=== PATIENT | male | born 1980 | race Caucasian/White ===

== ENCOUNTER 2021-09-28 10:39 | Emergency (ER) | payer BC, OTHER, SELFPAY ==
[2021-09-28 10:51] VITALS: BP 132/92; PULSE 94; RESP 16; TEMP 36.8; O2SAT 99
--- NOTE | 2021-09-28 11:35 | ED.SKABFB ---
HPI - Skin/Abscess/Foreign Bdy General Chief complaint: Skin/Abscess/Foreign Body Stated complaint: lft side of facial swelling Source: patient and RN notes reviewed Mode of arrival: ambulatory History of Present Illness HPI narrative: This is a 40-year-old male who presented to urgent care with complaints of left near edema with tenderness. Patient notes that the swelling was so bad that it was under his left yesterday. He did attempt to use the net body but was unable to get flow due to the swelling in his left nare. The patient denies SOB, CP, palpitation, extremity numbness, lightheadedness, dizziness, constipation, diarrhea, chills, or fever. Related Data Home Medications Medication Instructions Recorded Confirmed empagliflozin [Jardiance] mg 09/28/21 febuxostat mg 09/28/21 metformin mg PO 09/28/21 omeprazole 09/28/21 rosuvastatin mg 09/28/21 trazodone 09/28/21 Allergies Allergy/AdvReac Type Severity Reaction Status Date / Time No Known Allergies Allergy Unverified 07/30/17 19:20 Review of Systems Review of Systems: A 14 organ system Review of Systems was performed and pertinent positives included in the HPI, otherwise remaining ROS is negative. FORMERLY [facility], [facility] Family History Family History Other Family history non-contributory Exam Narrative: GENERAL: This is a well-nourished, well-developed patient, in no apparent distress. HEAD: normocephalic, atraumatic. EYES: PERRL. Sclera clear/white. Vision is grossly intact. EARS: External ears normal, auditory canals clear and without drainage, TMs normal without perforation. Hearing grossly intact. NOSE: Slight edema to the left external nare with erythema and edema to the inner nare THROAT: Mucous membranes moist, posterior pharynx clear. NECK: Neck supple, non-tender without lymphadenopathy, masses or thyromegaly. CARDIOVASCULAR: Regular rate and rhythm without murmurs, gallops, or rubs. RESPIRATORY: Clear to auscultation. Breath sounds equal bilaterally. No wheezes, rales, or rhonchi. GASTROINTESTINAL: Abdomen soft, non-tender, nondistended. Bowel sounds are active. No hepato-splenomegaly, or palpable masses. No guarding. SKIN: warm, intact with no suspicious lesions or rash, good texture and turgor. NEURO: awake, alert, and oriented to person, place and time. There were no obvious focal neurologic abnormalities. Steady gait EXTREMITIES: Normal range of motion. No edema. No calf tenderness. Negative Homans sign bilaterally. BACK: Nontender without deformity or crepitance. No flank tenderness. Course Course Emergency Course: Patient treated for sinusitis will get Augmentin with Flonase and prednisone 21 pills Vital Signs Vital signs: Vital Signs Temperature 98.2 F 09/28/21 10:51 Pulse Rate 94 09/28/21 10:51 Respiratory Rate 16 09/28/21 10:51 Blood Pressure 132/92 H 09/28/21 10:51 Pulse Oximetry 99 09/28/21 10:51 Temperature 98.2 F 09/28/21 10:51 Pulse Rate 94 09/28/21 10:51 Respiratory Rate 16 09/28/21 10:51 Blood Pressure 132/92 H 09/28/21 10:51 Pulse Oximetry 99 09/28/21 10:51 MDM - Skin/Abscess/Foreign Bdy Differential Diagnosis Differential diagnosis: Likely abscess of skin or subcutaneous tissue, cellulitis and other (sinusitis) Discharge Plan Discharge Clinical Impression: Sinusitis Patient Disposition: Home, Self-Care Condition: Stable Instructions: Antibiotic Form, Sinusitis (ED) Prescriptions: New amoxicillin-pot clavulanate [Augmentin] 875-125 mg tablet 1 tablet PO Q12H 7 Days Qty: 14 RF: 0 methylprednisolone [Methylpred DP] 4 mg tablets,dose pack 4 mg PO DAILY Qty: 21 RF: 0 fluticasone propionate [Flonase Allergy Relief] 50 mcg/actuation spray,suspension 1 spray intranasal BID 7 Days Qty: 16 RF: 0 No Action trazodone 50 mg tablet RF: 0 omeprazole 40 mg capsule,delayed release(DR/EC) RF:
== END 2021-09-28 11:50 | disposition home or self-care (01) ==
PROVIDERS: Emergency Provider Nurse Practitioner; PCP Physician Assistant
DX: J32.9 Chronic sinusitis, unspecified (principal)
CPT/HCPCS: 99213; G0463

== ENCOUNTER 2022-07-25 19:38 | Emergency (ER) | payer BC, OTHER, SELFPAY ==
[2022-07-25 19:46] VITALS: BP 121/82; PULSE 88; RESP 18; TEMP 36.3; O2SAT 100
--- NOTE | 2022-07-25 20:00 | ED.URI ---
HPI - URI/Sore Throat General Chief Complaint: Upper Respiratory Infection Stated Complaint: uri Time Seen by Provider: 07/25/22 19:50 Source: patient Mode of arrival: ambulatory Limitations: no limitations History of Present Illness HPI Narrative: Patient presents today complaining of a 6-day history of productive cough, nasal congestion, rhinorrhea, headache, intermittent fevers. States 2 of his children were recently diagnosed with RSV. He has been taking Mucinex D, Advil D, Flonase, and Tylenol with intermittent relief. Denies shortness of breath, chest pain. Related Data Home Medications Medication Instructions Recorded Confirmed empagliflozin 10 mg tablet mg 09/28/21 (Jardiance) febuxostat 80 mg tablet mg 09/28/21 metformin 500 mg tablet,extended mg PO 09/28/21 release 24 hr omeprazole 40 mg capsule,delayed 09/28/21 release rosuvastatin 10 mg tablet mg 09/28/21 trazodone 50 mg tablet 09/28/21 Allergies Allergy/AdvReac Type Severity Reaction Status Date / Time No Known Allergies Allergy Unverified 07/30/17 19:20 Review of Systems Review of Systems: CONSTITUTIONAL: Denies body aches, chills, or sweats.+ Fever EYES: Denies visual changes, redness, or discharge. ENT: Denies sore throat, or otalgia.+ Congestion, rhinorrhea CARDIOVASCULAR: Denies chest pain, palpitations, or edema. RESPIRATORY: Denies dyspnea.+ Cough GASTROINTESTINAL: Denies abdominal pain, nausea, vomiting, or diarrhea. GENITOURINARY: Denies dysuria or hematuria. SKIN: Denies rash, itching, or wounds. MUSCULOSKELETAL: Denies back pain, joint pain, or myalgia. NEUROLOGIC: Denies numbness, tingling, or weakness.+ Headache PSYCH: Denies depression or anxiety. PENDING SALE TO [facility] Family History Family History Other Family history non-contributory Comments At time of signature, I have reviewed and agree with nursing past medical, surgical, social and family history unless otherwise noted. Please see nursing chart for further information. There is no relevant family history pertinent to the presenting complaint Exam Narrative: GENERAL: Mildly ill-appearing, well-nourished, and in no acute distress. HEAD: Normocephalic, atraumatic. EYES: EOMI. No redness or drainage. Conjunctivae normal. ENT: Mucous membranes pink and moist. Nares clear. No rhinorrhea. TMs normal bilaterally. Throat normal. Uvula midline. NECK: Normal AROM. Supple. No lymphadenopathy. CHEST: No respiratory distress. Clear to auscultation. Tight cough noted. Deep breath elicits coughing episodes. HEART: Regular rate and rhythm. No murmur appreciated. Normal peripheral pulses. EXTREMITIES: Normal range of motion. No edema. SKIN: Warm, dry, no rash. Capillary refill normal. Normal skin turgor. NEURO: No focal deficits. Alert and oriented x3. Gait steady. PSYCH: Normal affect. No signs of depression or anxiety. Course Course Level of Care: Express Care Visit Vital Signs Vital signs: Vital Signs Temperature 97.3 F L 07/25/22 19:46 Pulse Rate 88 07/25/22 19:46 Respiratory Rate 18 07/25/22 19:46 Blood Pressure 121/82 07/25/22 19:46 Pulse Oximetry 100 07/25/22 19:46 Oxygen Delivery Room Air 07/25/22 19:46 Temperature 97.3 F L 07/25/22 19:46 Pulse Rate 88 07/25/22 19:46 Respiratory Rate 18 07/25/22 19:46 Blood Pressure 121/82 07/25/22 19:46 Pulse Oximetry 100 07/25/22 19:46 Oxygen Delivery Room Air 07/25/22 19:46 Reviewed. Pt has been instructed to follow up with his PCP regarding his elevated blood pressure today. MDM - URI/Sore Throat Differential Diagnosis Differential diagnosis: Likely upper respiratory infection, viral infection and bronchitis Critical Care Time Critical Care Time Critical Care Time: No Discharge Plan Discharge Clinical Impression: Upper respiratory infection, Bronchitis Patient Disposition: Home, Self-Care Con
== END 2022-07-25 20:06 | disposition home or self-care (01) ==
PROVIDERS: Emergency Provider Nurse Practitioner; PCP Physician Assistant
DX: J06.9 Acute upper respiratory infection, unspecified (principal); J40 Bronchitis, not specified as acute or chronic
CPT/HCPCS: 99213; G0463

== ENCOUNTER → 2024-02-11 15:57 | Outpatient (CLI) | payer BC, SELFPAY ==
--- NOTE | ~2024-02-11 | XR_ITS ---
EXAM: XR clavicle LT DATE: 02/11/2024 16:17 HISTORY: PAIN AT STERNOCLAVICAL JOINT X 2 WEEKS NO KNOWN INJURY . COMPARISON: None available. FINDINGS: Normal mineralization. No fracture or dislocation. No lytic or blastic lesion. Old healed distal left clavicular shaft fracture. Moderate AC joint and mild glenohumeral joint degenerative addi nge. No erosion or periosteal change. Soft tissues within normal limits. IMPRESSION: No acute osseous finding the left clavicle. Reviewed, dictated and finalized at location K.
== END ==
LOC: EXPCRAD 16:02
PROVIDERS: PCP Physician Assistant; Visit Provider Physician Assistant
DX: M25.512 Pain in left shoulder (principal)
CPT/HCPCS: 73000

== ENCOUNTER 2025-02-10 09:34 | Emergency (ER) | payer BC, SELFPAY ==
--- NOTE | ~2025-02-10 | CT_ITS ---
Non-contrast CT scan of the Abdomen and Pelvis Clinical indication: Left flank pain Technique: 2.5 mm axial scans were obtained through the abdomen and pelvis without intravenous or or al contrast. Dose reduction technique was used on this scan by utilizing automated exposure control a nd iterative reconstruction technique. The dose-length product (DLP) was 687.02 mGy-cm. Findings: Images through the lung bases reveal no abnormalities. There is a 2 mm stone either at the left UVJ or just within the urinary bladder, with minimal left hy droureteronephrosis. Multiple additional bilateral nonobstructing renal stones are present, measuring up to 4 mm in diameter. No right ureteral stone or right hydronephrosis. The liver, spleen, pancreas, gallbladder, and adrenals appear normal. There is no aortic aneurysm. There is no evidence of bowel obstruction. Images through the pelvis were performed. There is no evidence of ascites or lymphadenopathy. Urinary bladder otherwise unremarkable. No pelvic mass seen. Impression: 2 mm stone at the left UVJ versus just within the urinary bladder. Associated mild left hydroureteron ephrosis. Multiple additional bilateral nonobstructing renal stones, as detailed above. Reviewed, dictated and finalized at location M. Impression: 2 mm stone at the left UVJ versus just within the urinary bladder. Associated m ild left hydroureteronephrosis. Multiple additional bilateral nonobstructing renal stones, as detailed above.
[2025-02-10 09:40] VITALS: BP 127/96; PULSE 81; RESP 15; TEMP 36.5; O2SAT 100
--- OUTSIDE RECORDS SUMMARY | 2025-02-10 10:01 | XMS_ITS | Referral Summary ---
Author Organization [facility] [place] [address] [facility] Address [address] [place] [id number] Care Team Providers Care Air Analyst Name Role Phone Janine Cardoza Primary Care Provider [phone] Encounters Date Type Department Care Team Description 11/19/2024 Orders Only [facility] Medical [facility] Family Medicine [address] [place] [address] [place] [phone] Provider, MD Kayla 11/18/2024 3:30 PM [employer] Office Visit [address] [place] [phone] Janine Cardoza PA Annual physical exam (Primary Dx); Need for influenza vaccination; Controlled type 2 diabetes mellitus without complication, without long-term current use of insulin (HCC); Type 2 diabetes mellitus with hyperlipidemia (HCC); Exposure to herpes simplex virus (HSV); Moderate episode of recurrent major depressive disorder (HCC); BMI 27.0-27.9,adult from Last 3 Months Allergies No known active allergies Medications blood-glucose meter kitIndications:Co ntrolled type 2 diabetes mellitus without complication, without long-term current use of insulin (HCC) Test daily 1 each Active Micro Thin Lancets 33 gauge misc USE TO TEST BLOOD SUGAR ONCE DAILY 100 each 2 020 Active omega-3 fatty acids-fish oil 300-1,000 mg capsule Take by mouth Active multivitamin-calc ium carb tablet,chewable Take by mouth Active multivit-min/iron /folic acid/K (ADULTS MULTIVITAMIN ORAL) Take by mouth Active albuterol HFA (PROVENTIL HFA,VENTOLIN HFA,PROAIR HFA) 90 mcg/actuation inhaler Inhale 2 puffs every 4 (four) hours as needed for wheezing 8.5 g 1 Active colchicine (COLCRYS) 0.6 mg capsule Take TWO tabs po at onset of sxs. Take one pill 6 hours later. 3 capsule 1 022 Active Additional Information Patient not taking.Reported on 11/18/2024 ketoconazole (NIZORAL) 2 % shampoo Apply topically 2 (two) times a week Apply to damp skin, lather, leave on 5 minutes, and rinse 120 mL 2 022 Active sildenafiL (VIAGRA) 100 mg tablet Take 1 tablet (100 mg total) by mouth as needed for erectile dysfunction 10 tablet 3 024 Active traZODone (DESYREL) 150 mg tablet TAKE 1 TABLET(150 MG) BY MOUTH EVERY NIGHT NEEDED FOR SLEEP 90 tablet 2 024 Active buPROPion XL (WELLBUTRIN XL) 150 mg 24 hr tablet Take 1 tablet (150 mg total) by mouth every morning 90 tablet 1 024 Active benzonatate (TESSALON) 100 mg capsuleIndication s:Cough Take 1 capsule (100 mg total) by mouth 3 (three) times a day as needed for cough 30 capsule 024 Active valACYclovir (VALTREX) 1 gram tablet Take 1 tablet (1,000 mg total) by mouth daily 90 tablet 1 024 Active omeprazole (PriLOSEC) 40 mg capsule TAKE 1 CAPSULE(40 MG) BY MOUTH DAILY 90 capsule 2 025 Active Additional Information Patient taking differently:40 mg oralDaily PRN, Reported on 11/18/2024 Maryan 15 mg/0.5 mL pen injector injection ADMINISTER 15 MG UNDER THE SKIN EVERY 7 DAYS 6 mL 1 025 Active escitalopram (LEXAPRO) 20 mg tablet TAKE 1 TABLET(20 MG) BY MOUTH DAILY 100 tablet 1 025 Active febuxostat (ULORIC) 80 mg tablet TAKE 1 TABLET(80 MG) BY MOUTH DAILY 90 tablet 2 025 Active rosuvastatin (CRESTOR) 10 mg tabletIndications :Type 2 diabetes mellitus with hyperlipidemia (HCC) TAKE 1 TABLET(10 MG) BY MOUTH DAILY 90 tablet 2 025 Active rosuvastatin (CRESTOR) 10 mg tabletIndications :Type 2 diabetes mellitus with hyperlipidemia (HCC) TAKE 1 TABLET(10 MG) BY MOUTH DAILY 90 tablet 2 024 2024 Discontinued febuxostat (ULORIC) 80 mg tablet TAKE 1 TABLET(80 MG) BY MOUTH DAILY 90 tablet 2 024 2024 Discontinued Active Problems Problem Noted Date Diagnosed Date Need for influenza vaccination 11/29/2024 Assessment & Plan (11/29/2024 5:22 PM [employer]): Flu vaccine updated in the office today Annual physical exam 11/29/2024 Assessment & Plan (11/29/2024 5:22 PM [employer]ISON): Encouraged healthy lifestyle, good nutrition and exercise. Encouraged Calcium and Vitamin D and weight bearing exercise for bone health. Reviewed immunizations Reviewed age appropirate screenings. BMI 27.0-27.9,adult 08/11/2024 Assessment & Plan (11/29/2024 5:21 PM [employer]ISON): Weight/BMI is in healthy range. Continue healthy lifestyle to maintain. Assessment & Plan (09/14/2024 3:44 PM [employer]ITY [employer]ISON): Discussed the patient's BMI. The BMI is above average. BMI management plan is completed. BMI Follow-up includes: nutrition counseling, exercise counseling and education provided. Assessment & Plan (08/11/2024 1:41 PM [employer]ISON): Weight/BMI is in healthy range. Continue healthy lifestyle to maintain. Moderate episode of recurrent major depressive d isorder 08/11/2024 Assessment & Plan (11/29/2024 5:22 PM [employer]ISON): Continue Wellbutrin XL 150, trazodone 150 for sleep and Lexapro 20 Assessment & Plan (09/26/2024 1:34 PM [employer]ISON): Depression symptoms are still present. He is under a lot of stress as he is currently going through a divorce and juggling children as well as work. Continue Wellbutrin XL 150. Increase the Lexapro to 20 mg. Follow-up 6-8 weeks to reassess or sooner for any other problems or concerns. Strongly encouraged continued counseling Assessment & Plan (09/13/2024 12:45 AM [employer]ITY [employer]IAISON): Patient is under lot of stress, depression. Is going through divorce. Juggling caring for his children and just a lot of changes. He is in counseling. Started Wellbutrin XL 150. Still feels like it is not doing enough. Will add the Lexapro 10 mg. Using trazodone 150 for sleep. Follow up in 4 weeks to reassess or sooner for any other problems or concerns Assessment & Plan (08/12/2024 12:17 AM [employer]IAISON): Discussed depression at length. Currently no suicidal homicidal thoughts. He may call at any time if he needs assistance. Encouraged continuing with his counselor. Discussed medication options. His counselor has encouraged bupropion and so he is very interested in this product no history of seizures. Will go with Wellbutrin XL 150. Reviewed risks benefits alternatives side effects and proper use. Take in the a.m.. Follow up in 3 weeks to reassess and if still not seen enough improvement will add Lexapro. 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 Assessment & Plan (09/13/2024 12:46 AM [employer] COMM[employer]ITY [employer]IAISON): Continue Valtrex for prevention Assessment & Plan (08/12/2024 12:16 AM [employer] COMM[employer]ITY [employer]IAISON): Exposure to HSV through his current partner. Discussed ability to diagnose this between culturing a active lesion versus IgG lab work. He is in favor doing lab work at this point. Advised if another lesion appears to come in so we can culture at that time. He is in agreement with the plan. Will start Valtrex 1 g t.i.d. x7 days. Will then transitioned to 1 g daily for suppression. Controlled type 2 diabetes kale austin without complication, without long-term current use of insulin 05/24/2022 Assessment & Plan (11/29/2024 5:22 PM [employer] COMM[employer]ITY [employer]IAISON): Stressed importance of continued A1c control to minimize the frame polisher effects of diabetes. Bring accuchecks to office when instructed to do so. Check A1c about every 3-6 months. Take medication as prescribed. Get annual eye exam. Encouraged LLOYD/Statin if able to tolerate. Encouraged weight control and encouraged diabetic diet and exercise. Assessment & Plan (09/26/2024 1:34 PM [employer]ITY [employer]IAISON): Stressed importance of continued A1c control to minimize the frame polisher effects of diabetes. Bring accuchecks to office when instructed to do so. Check A1c about every 3-6 months. Take medication as prescribed. Get annual eye exam. Encouraged LLOYD/Statin if able to tolerate. Encouraged weight control and encouraged diabetic diet and exercise. Encouraged patient to follow low fat/low chol diet like the Mediterranean diet. Increase good fats in the diet. Increase exercise. Monitor labs as needed. A1c is very tightly controlled with an A1c at 5.2. Weight has gone down nicely. He is on MOunjaro 15. At this point he wants to continue with the same dose. May consider titrating back down with the next visit. Assessment & Plan (09/13/2024 12:45 AM [employer]IAISON): Stressed importance of continued A1c control to minimize the jail effects of diabetes. Bring accuchecks to office when instructed to do so. Check A1c about every 3-6 months. Take medication as prescribed. Get annual eye exam. Encouraged LLOYD/Statin if able to tolerate. Encouraged weight control and encouraged diabetic diet and exercise. Continue Mounjaro 15. A1c is tightly controlled. Assessment & Plan (08/12/2024 12:15 AM [employer] COMM[employer]ITY [employer]IAISON): Stressed importance of continued A1c control to minimize the frame polisher effects of diabetes. Bring accuchecks to office when instructed to do so. Check A1c about every 3-6 months. Take medication as prescribed. Get annual eye exam. Encouraged LLOYD/Statin if able to tolerate. Encouraged weight control and encouraged diabetic diet and exercise. Patient is doing well with the mounjaro 12.5 He feels like he is snacking and emotionally eating but I suspect this is related to depression and stressors that are currently in his life. Will aggressively treat the depression and continue to monitor closely. Assessment & Plan (04/12/2024 6:59 PM CDT): Stressed importance of continued A1c control to minimize the frame polisher effects of diabetes. Bring accuchecks to office when instructed to do so. Check A1c about every 3-6 months. Take medication as prescribed. Get annual eye exam. Encouraged LLOYD/Statin if able to tolerate. Encouraged weight control and encouraged diabetic diet and exercise. Continue Ozempic 2 mg Assessment & Plan (12/15/2023 10:48 PM CDT): Stressed importance of continued A1c control to minimize the frame polisher effects of diabetes. Bring accuchecks to office when instructed to do so. Check A1c about every 3-6 months. Take medication as prescribed. Get annual eye exam. Encouraged LLOYD/Statin if able to tolerate. Encouraged weight control and encouraged diabetic diet and exercise. A1c has been nicely controlled . Continue Ozempic -- may change based on supply. Assessment & Plan (06/10/2023 1:26 AM CDT): Stressed importance of continued A1c control to minimize the frame polisher effects of diabetes. Bring accuchecks to office when instructed to do so. Check A1c about every 3-6 months. Take medication as prescribed. Get annual eye exam. Encouraged LLOYD/Statin if able to tolerate. Encouraged weight control and encouraged diabetic diet and exercise. Has done well Rybelsus but discussed more weight loss and possibly better control of lipids and other comorbidities with transitioned to much RO. Will stop the [id number] transitioned to majora 5 and continue to increase as tolerated. Assessment & Plan (12/16/2022 6:26 PM CDT): Stressed importance of continued A1c control to minimize the frame polisher effects of diabetes. Bring accuchecks to office when instructed to do so. Check A1c about every 3-6 months. Take medication as prescribed. Get annual eye exam. Encouraged LLOYD/Statin if able to tolerate. Encouraged weight control and encouraged diabetic diet and exercise. Well controlled with Rybelsus 14mg. Can stop Metformin. Assessment & Plan (05/26/2022 1:38 PM CDT): Stressed importance of continued A1c control to minimize the jail effects of diabetes. Bring accuchecks to office when instructed to do so. Check A1c about every 3-6 months. Take medication as prescribed. Get annual eye exam. Encouraged LLOYD/Statin if able to tolerate. Encouraged weight control and encouraged diabetic diet and exercise. Encouraged patient to follow low fat/low chol diet like the Mediterranean diet. Increase good fats in the diet. Increase exercise. Monitor labs as needed. Continue statin A1c is very tightly controlled with the addition of the Rybelsus 14 mg. May stop the metformin. Recheck labs in 4-6 months. History of 2019 novel coronavirus disease (COVID -19) 11/13/2020 Overview (11/13/2020): Positive 10/2020 Assessment & Plan (11/13/2020 6:16 PM [employer]ET[employer] COMM[employer]ITY [employer]IAISON): Continue to monitor. If sxs reoccur he is to call. His 10 days quarrantine has completed. Erectile dysfunction associa jamaal with type 2 diabetes mellitus 10/15/2019 Assessment & Plan (04/12/2024 6:59 PM CDT): Continue Viagra p.r.n. Assessment & Plan (06/29/2020 1:37 PM CDT): monitor Assessment & Plan (11/07/2019 11:02 AM [employer] COMM[employer]ITY [employer]IAISON): Stressed importance of continued A1c control to minimize the jail effects of diabetes. Bring accuchecks to office when instructed to do so. Check A1c about every 3-6 months. Take medication as prescribed. Get annual eye exam. Encouraged LLOYD/Statin if able to tolerate. Encouraged weight control and encouraged diabetic diet and exercise. Other secondary gout, multiple sites 10/15/2019 Assessment & Plan (04/12/2024 6:58 PM CDT): Encouraged to take Uloric daily as instructed to see if he can regain control of his gout Assessment & Plan (12/15/2023 10:49 PM CDT): Stable with Uloric Assessment & Plan (12/16/2022 6:25 PM CDT): Stable with Uloric. He is on a high dose but this is keeping his uric acid low. He has not really had any flares. Assessment & Plan (05/26/2022 1:37 PM CDT): Stable with the Uloric. Refills of pharmacy Assessment & Plan (08/25/2021 7:24 PM [employer]ITY [employer]IAISON): Uloric is tolerated well. His uric acid level is 2.7 so suspect that his right toe pain may not be gout related. Will check an x-ray. Assessment & Plan (11/13/2020 6:19 PM [employer]ETING COMM[employer]ITY LIAISON): Continue with uloric Assessment & Plan (06/29/2020 1:37 PM CDT): Uric acid level is tightly controlled with the Uloric. Continue to monitor diet Assessment & Plan (11/07/2019 11:02 AM [employer] COMM[employer]ITY LIAISON): Continue Uloric Monitor diet Primary insomnia 10/15/2019 Assessment & Plan (09/26/2024 1:32 PM [employer] COMM[employer]ITY [employer]IAISON): Patient continues to have difficulty sleeping. Probably secondary to depression and stress with an ongoing divorce. Continue trazodone 150. Using Benadryl p.r.n.. Continue to aggressively treat the depression anxiety with the Wellbutrin and Lexapro. Assessment & Plan (04/12/2024 6:58 PM CDT): Continue trazodone Assessment & Plan (05/26/2022 1:39 PM CDT): Continue with the trazodone Assessment & Plan (01/20/2022 10:52 PM CDT): Continue trazodone 150 mg. Will new tablet sent to pharmacy Assessment & Plan (08/25/2021 7:27 PM [employer]ITY [employer]IAISON): This is a significant, separately identifiable problem that was evaluated and managed on the same day as the wellness exam Patient is having difficulty falling asleep at night as he is working 2nd shift and trying to stay up to be with his family. He has not tolerated Ambien well in the past. Will try trazodone 50 mg take 1-2 tablets 1-2 hours prior to the onset of sleep. Reviewed risks benefits alternatives side effects and proper use. Will monitor and few months to see how he is doing see adjustments me made. If he has any problems before then he is to call the office for further assistance Assessment & Plan (11/07/2019 11:04 AM [employer]IAISON): Discussed treatment options. Encouraged good sleep hygeine -- will continue to monitor. Type 2 diabetes mellitus with hyperlipidemia 06/2020 Assessment & Plan (11/29/2024 5:21 PM [employer] COMM[employer]ITY LIAISON): Stressed importance of continued A1c control to minimize the jail effects of diabetes. Bring accuchecks to office when instructed to do so. Check A1c about every 3-6 months. Take medication as prescribed. Get annual eye exam. Encouraged LLOYD/Statin if able to tolerate. Encouraged weight control and encouraged diabetic diet and exercise. Encouraged patient to follow low fat/low chol diet like the Mediterranean diet. Increase good fats in the diet. Increase exercise. Monitor labs as needed. Continue Mounjaro as his A1c is very well controlled. Advised it so low that it may be time to start pulling back on the Mounjaro Still encouraged him to eat protein and calories as he has had significant weight loss. Assessment & Plan (09/26/2024 1:33 PM [employer]ING COMM[employer]ITY LIAISON): Stressed importance of continued A1c control to minimize the jail effects of diabetes. Bring accuchecks to office when instructed to do so. Check A1c about every 3-6 months. Take medication as prescribed. Get annual eye exam. Encouraged LLOYD/Statin if able to tolerate. Encouraged weight control and encouraged diabetic diet and exercise. Encouraged patient to follow low fat/low chol diet like the Mediterranean diet. Increase good fats in the diet. Increase exercise. Monitor labs as needed. A1c is very tightly controlled with an A1c at 5.2. Weight has gone down nicely. He is on MOunjaro 15. At this point he wants to continue with the same dose. May consider titrating back down with the next visit. Continue Crestor 10 Assessment & Plan (04/12/2024 6:59 PM CDT): Encouraged patient to follow low fat/low chol diet like the Mediterranean diet. Increase good fats in the diet. Increase exercise. Monitor labs as needed. Continue Crestor 10 Assessment & Plan (12/15/2023 10:50 PM CDT): Encouraged patient to follow low fat/low chol diet like the Mediterranean diet. Increase good fats in the diet. Increase exercise. Monitor labs as needed. Continue Crestor 10 Assessment & Plan (06/10/2023 1:25 AM CDT): Stressed importance of continued A1c control to minimize the jail effects of diabetes. Bring accuchecks to office when instructed to do so. Check A1c about every 3-6 months. Take medication as prescribed. Get annual eye exam. Encouraged LLOYD/Statin if able to tolerate. Encouraged weight control and encouraged diabetic diet and exercise. Encouraged patient to follow low fat/low chol diet like the Mediterranean diet. Increase good fats in the diet. Increase exercise. Monitor labs as needed. Continue Crestor 10. Has done well Rybelsus but discussed more weight loss and possibly better control of lipids and other comorbidities with transitioned to much RO. Will stop the [id number] transitioned to majora 5 and continue to increase as tolerated. Assessment & Plan (12/16/2022 6:25 PM CDT): Encouraged patient to follow low fat/low chol diet like the Mediterranean diet. Increase good fats in the diet. Increase exercise. Monitor labs as needed. Continue Crestor 10 Assessment & Plan (05/26/2022 1:38 PM CDT): Stressed importance of continued A1c control to minimize the frame polisher effects of diabetes. Bring accuchecks to office when instructed to do so. Check A1c about every 3-6 months. Take medication as prescribed. Get annual eye exam. Encouraged LLOYD/Statin if able to tolerate. Encouraged weight control and encouraged diabetic diet and exercise. Encouraged patient to follow low fat/low chol diet like the Mediterranean diet. Increase good fats in the diet. Increase exercise. Monitor labs as needed. Continue statin A1c is very tightly controlled with the addition of the Rybelsus 14 mg. May stop the metformin. Recheck labs in 4-6 months. Assessment & Plan (01/20/2022 10:52 PM CDT): Encouraged patient to follow low fat/low chol diet like the Mediterranean diet. Increase good fats in the diet. Increase exercise. Monitor labs as needed. Have held statin due to liver enzymes. Will continue to monitor Assessment & Plan (08/25/2021 7:24 PM [employer] COMM[employer]ITY [employer]IAISON): Encouraged patient to follow fat/low chol diet like the Mediterranean diet. Increase good fats in the diet. Increase exercise. Monitor labs as needed. Continue Crestor Assessment & Plan (11/13/2020 6:18 PM MARKETING COMMUNITY LIAISON): Encouraged patient to follow fat/low chol diet like the Mediterranean diet. Increase good fats in the diet. Increase exercise. Monitor labs as needed. Crestor daily Reviewed risks, benefit, alternatives, side effects and proper use. Monitor LFTs Assessment & Plan (06/29/2020 1:37 PM CDT): Encouraged patient to continue low fat/low chol diet. Continue exercise. Increase good fats in the diet. Monitor labs as needed. Discussed benefit of statin with DM but will still hold until after LFTs/liver workup is done. Assessment & Plan (11/07/2019 11:05 AM [employer] COMM[employer]ITY [employer]IAISON): This is a significant, separately identifiable problem that was evaluated and managed on the same day as the wellness exam Encouraged patient to continue low fat/low chol diet. Continue exercise. Increase good fats in the diet. Monitor labs as needed. Would benefit from statin but hesitant to start without addressing the LFTs. Will refer to GI and await recommendations. Gastroesophageal reflux disease without esophagi tis 10/15/2019 Assessment & Plan (04/12/2024 6:59 PM CDT): Continue PPI p.r.n. Assessment & Plan (12/16/2022 6:25 PM CDT): Continue PPI p.r.n. Assessment & Plan (08/25/2021 7:24 PM [employer]ITY [employer]IAISON): Continue omeprazole. Will change to 40 mg tablets 1 daily. Assessment & Plan (06/29/2020 1:34 PM CDT): Continue PPI Assessment & Plan (11/07/2019 11:01 AM [employer] COMM[employer]ITY [employer]IAISON): Currently stable without medication Elevated liver enzymes 10/15/2019 Assessment & Plan (12/15/2023 10:45 PM CDT): Continue to monitor. May consider liver ultrasound to rule out fatty liver. Assessment & Plan (06/29/2020 1:41 PM CDT): Continue per Dr. Fraga. Await workup completion to determine start of statin Assessment & Plan (11/07/2019 11:05 AM [employer] COMM[employer]ITY [employer]IAISON): This is a significant, separately identifiable problem that was evaluated and managed on the same day as the wellness exam Heptatitis screening was negative. Stop all alcohol and Tylenol and other liver process meds--- Refer to GI for further evaluation Lymphocytic thyroiditis 02/20/2014 Overview (01/11/2017): [facility]R LYMPHOCYT THYROIDIT Resolved Problems Problem Noted Date Diagnosed Date Resolved Date Subacute cough 08/12/2024 09/13/2024 Assessment & Plan (08/12/2024 12:19 AM [employer]IAISON): Patient has had a persistent cough for almost 10 days. He did a negative COVID at home. Is becoming productive with some discoloration. Will send out Augmentin 875 b.i.d. times 10 days. Will send Tessalon Perles for the cough. Continue with [id number] cough medicines as needed. If symptoms worsen or do not improve he is to follow up immediately. Screening examination for ST D (sexually transmitted disease) 08/11/2024 09/13/2024 Assessment & Plan (08/12/2024 12:17 AM MARKETING COMMUNITY LIAISON): Will check STD screening including HIV hepatitis syphilis gonorrhea chlamydia and trichomoniasis along with HSV. Acute pain of left shoulder 04/12/2024 09/26/2024 Assessment & Plan (04/12/2024 7:16 PM CDT): Persistent shoulder pain. X-ray did not show an acute fracture. Has tried physical therapy without improvement. Recommend referral to orthopedics for further evaluation. BMI 32.0-32.9,adult 12/15/2023 08/11/20 Assessment & Plan (04/12/2024 7:00 PM CDT): Discussed the patient's BMI. The BMI is above average. BMI management plan is completed. BMI Follow-up includes: nutrition counseling, exercise counseling and education provided. Assessment & Plan (12/15/2023 10:45 PM CDT): Discussed the patient's BMI. The BMI is above average. BMI management plan is completed. BMI Follow-up includes: nutrition counseling, exercise counseling and education provided. Obesity (BMI 30.0-34.9) 12/15/202303/08 Assessment & Plan (12/15/2023 10:45 PM CDT): Discussed the patient's BMI. The BMI is above average. BMI management plan is completed. BMI Follow-up includes: nutrition counseling, exercise counseling and education provided. Positive depression screening 12/02/2023 09/26/2024 Elevated LFTs 06/10/2023 12/15/2023 Assessment & Plan (06/10/2023 1:26 AM CDT): LFTs have been elevated but stable. Go ahead and check an ultrasound of the liver as well as continue with weight loss and diabetes control. BMI 35.0-35.9,adult 05/30/2023 12/15/19 Assessment & Plan (05/30/2023 2:13 PM CDT): Discussed the patient's BMI. The BMI is above average. BMI management plan is completed. BMI Follow-up includes: nutrition counseling, exercise counseling and education provided. BMI 35.0-35.9,adult 11/26/2022 05/30/20 Assessment & Plan (11/26/2022 4:10 PM [employer]IAISON): Discussed the patient's BMI. The BMI is above average. BMI management plan is completed. BMI Follow-up includes: nutrition counseling, exercise counseling and education provided. Body mass index 34.0-34.9, adult 05/26/2022 12/16/2022 Assessment & Plan (05/26/2022 1:38 PM CDT): Discussed the patient's BMI. The BMI is above average. BMI management plan is completed. BMI Follow-up includes: nutrition counseling, exercise counseling and education provided. BMI 34.0-34.9,adult 01/18/2022 05/26/20 Assessment & Plan (01/18/2022 3:45 PM CDT): Obesity is unchanged. Discussed the patient's BMI. The BMI is above average. BMI management plan is completed. BMI Follow-up includes: nutrition counseling, exercise counseling and education provided. BMI 36.0-36.9,adult 08/25/2021 01/19/20 Assessment & Plan (08/25/2021 10:00 AM [employer] COMM[employer]ITY [employer]IAISON): Obesity is unchanged. Discussed the patient's BMI. The BMI is above average. BMI management plan is completed. BMI Follow-up includes: nutrition counseling, exercise counseling and education provided. Morbid obesity 08/25/2021 12/15/2023 Assessment & Plan (06/10/2023 1:25 AM CDT): Discussed the patient's BMI. The BMI is above average. BMI management plan is completed. BMI Follow-up includes: nutrition counseling, exercise counseling and education provided. Patient has an obesity-related condition (not limited to: hypertension, obstructive sleep apnea, osteoarthritis, hyperlipidemia, diabetes, etc.). Therefore, morbid obesity may be documented for patients with a BMI between 35.00-39.99. Assessment & Plan (12/16/2022 6:25 PM CDT): Discussed the patient's BMI. The BMI is above average. BMI management plan is completed. BMI Follow-up includes: nutrition counseling, exercise counseling and education provided. Patient has an obesity-related condition (not limited to: hypertension, obstructive sleep apnea, osteoarthritis, hyperlipidemia, diabetes, etc.). Therefore, morbid obesity may be documented for patients with a BMI between 35.00-39.99. Assessment & Plan (05/26/2022 1:38 PM CDT): Discussed the patient's BMI. The BMI is above average. BMI management plan is completed. BMI Follow-up includes: nutrition counseling, exercise counseling and education provided. Assessment & Plan (01/18/2022 3:46 PM CDT): Obesity is unchanged. Discussed the patient's BMI. The BMI is above average. BMI management plan is completed. BMI Follow-up includes: nutrition counseling, exercise counseling and education provided. Assessment & Plan (08/25/2021 10:00 AM [employer]ITY [employer]IAISON): Obesity is unchanged. Discussed the patient's BMI. The BMI is above average. BMI management plan is completed. BMI Follow-up includes: nutrition counseling, exercise counseling and education provided. Chronic toe pain, right foot 08/25/2021 09/26/2024 Assessment & Plan (08/25/2021 7:26 PM [employer]ET[employer]ITY [employer]IAISON): This is a significant, separately identifiable problem that was evaluated and managed on the same day as the wellness exam He is having great toe pain on the right but his uric acid levels 2.7 and he is on Uloric. Will check an x-ray to rule out any type of fracture. Continue to monitor closely. Fatigue 08/25/2021 09/26/2024 Assessment & Plan (12/15/2023 10:50 PM CDT): Probably multifactorial. Check labs and followup to re-evaluate Assessment & Plan (08/25/2021 7:26 PM MARKET[employer] COMM[employer]IAISON): Probably multifactorial. Check labs and followup to re-evaluate Chronic nasal congestion 10/16/2020 Assessment & Plan (10/16/2020 9:41 AM MARKETING COMM[employer]ITY LIAISON): Patient to presume positive COVID until results are available and self isolate for 14 days from the onset of sxs. Check COVID test thru [facility] collection site in [place]. Treat sxs with Tylenol, Cough/cold medication otc and add VitD 5,000IU daily and Zinc 50mg daily. Will send albuterol for prn use. Monitor sxs and call or go to the ER if has any of the following: --trouble breathing --persistent pain or pressure in the chest --new confusion --inability to wake or stay awake -- bluish lips or face If patient has been in close contact with anyone, they should be notified and instructed to quarantine per CDC guidelines for 14 days after last exposure to the positive COVID patient and monitor closely for symptoms of COVID. If they appear they should be tested. Close contact includes: --You were within 6 feet of someone who has COVID-19 for a total of 15 minutes or more --You provided care at home to someone who is sick with COVID-19 --You had direct physical contact with the person (hugged or kissed them) --You shared eating or drinking utensils --They sneezed, coughed, or somehow got respiratory droplets on you Additional Steps to avoid exposure/spread include: Avoid crowded places where close contact with others may occur, such as shopping centers, movie theaters, dormitories, or stadiums. Avoid transit where close contact with others may occur, such as planes, trains, and buses. Maintain a distance of approximately 6 feet from other people whenever possible (spacing out if you are in a line, leaving 2 seats in between others at a waiting room when possible). Wash your hands with soap and water often. If needed, use a hand glass blower that contains at least 60% alcohol. Clean and disinfect frequently touched surfaces such as tables, doorknobs, countertops, etc daily. Avoid touching your eyes, nose, and mouth when possible. BMI 34.0-34.9,adult 06/29/2020 08/25/20 21 Assessment & Plan (06/29/2020 10:49 AM CDT): Obesity is unchanged. Discussed the patient's BMI. The BMI is above average. BMI management plan is completed. BMI Follow-up includes: nutrition counseling, exercise counseling and education provided. Flu vaccine need 06/29/2020 12/16/2022 Assessment & Plan (08/25/2021 7:25 PM [employer]ISON): Flu vaccine updated Assessment & Plan (06/29/2020 1:41 PM CDT): Updated in office today Other fatigue 11/07/2019 08/25/2021 Assessment & Plan (11/07/2019 11:06 AM [employer]ETING COMM[employer]ITY [employer]IAISON): Probably multifactorial. Check labs and followup to re-evaluate BMI 37.0-37.9, adult 10/19/2019 020 Assessment & Plan (10/19/2019 3:56 PM [employer]ET[employer] COMM[employer]ITY LIAISON): Obesity is unchanged. Discussed the patient's BMI. The BMI is above average. BMI management plan is completed. BMI Follow-up includes: nutrition counseling, exercise counseling and education provided. Obesity (BMI 30-39.9) 10/19/20192023 Assessment & Plan (04/12/2024 7:00 PM CDT): Discussed the patient's BMI. The BMI is above average. BMI management plan is completed. BMI Follow-up includes: nutrition counseling, exercise counseling and education provided. Assessment & Plan (10/19/2019 3:56 PM [employer] COMM[employer]ITY [employer]IAISON): Obesity is unchanged. Discussed the patient's BMI. The BMI is above average. BMI management plan is completed. BMI Follow-up includes: nutrition counseling, exercise counseling and education provided. Annual physical exam 10/19/2019 024 Assessment & Plan (12/15/2023 10:50 PM CDT): Encouraged healthy lifestyle, good nutrition and exercise. Encouraged Calcium and Vitamin D and weight bearing exercise for bone health. Reviewed immunizations Reviewed age appropirate screenings. Assessment & Plan (12/16/2022 6:25 PM CDT): Encouraged healthy lifestyle, good nutrition and exercise. Encouraged Calcium and Vitamin D and weight bearing exercise for bone health. Reviewed immunizations Reviewed age appropirate screenings. Assessment & Plan (08/25/2021 7:25 PM [employer]ET[employer] COMM[employer]ITY LIAISON): Encouraged healthy lifestyle, good nutrition and exercise. Encouraged Calcium and Vitamin D and weight bearing exercise for bone health. Reviewed immunizations Reviewed age appropirate screenings. Assessment & Plan (06/29/2020 1:37 PM CDT): Encouraged healthy lifestyle, good nutrition and exercise. Encouraged Calcium and Vitamin D and weight bearing exercise for bone health. Reviewed immunizations Reviewed age appropirate screenings. Assessment & Plan (11/07/2019 11:03 AM MARKETING COMM[employer]ITY LIAISON): Encouraged healthy lifestyle, good nutrition and exercise. Encouraged Calcium and Vitamin D and weight bearing exercise for bone health. Reviewed immunizations Reviewed age appropirate screenings. Controlled type 2 diabetes kale [place]in, without long-term current use of insulin 10/15/2019 022 Assessment & Plan (01/20/2022 10:51 PM CDT): Stressed importance of continued A1c control to minimize the jail effects of diabetes. Bring accuchecks to office when instructed to do so. Check A1c about every 3-6 months. Take medication as prescribed. Get annual eye exam. Encouraged LLOYD/Statin if able to tolerate. Encouraged weight control and encouraged diabetic diet and exercise. Patient is not happy with the increased urination with the Jardiance. Would like to transition to a G LP. Prefers oral so will start right Ruiz's is 3 mg and x4 weeks and increase to the 7 mg x 4 weeks and then to 14. Reviewed risks benefits alternatives side effects and proper use. No history of pancreatitis. Assessment & Plan (08/25/2021 7:26 PM MARKETING COMM[employer]ITY LIAISON): Stressed importance of continued A1c control to minimize the frame polisher effects of diabetes. Bring accuchecks to office when instructed to do so. Check A1c about every 3-6 months. Take medication as prescribed. Get annual eye exam. Encouraged LLOYD/Statin if able to tolerate. Encouraged weight control and encouraged diabetic diet and exercise. Continue metformin 500 mg b.i.d.. Continue Jardiance 10 mg He wants to work a little more on diet. Assessment & Plan (06/29/2020 1:36 PM CDT): Stressed importance of continued A1c control to minimize the frame polisher effects of diabetes. Bring accuchecks to office when instructed to do so. Check A1c about every 3-6 months. Take medication as prescribed. Get annual eye exam. Encouraged LLOYD/Statin if able to tolerate. Encouraged weight control and encouraged diabetic diet and exercise. Continue Invokana and metformin. He will check with his insurance regarding preferred SGLT. Assessment & Plan (11/07/2019 11:05 AM MARKETING COMMUNITY LIAISON): This is a significant, separately identifiable problem that was evaluated and managed on the same day as the wellness exam Stressed importance of continued A1c control to minimize the jail effects of diabetes. Bring accuchecks to office when instructed to do so. Check A1c about every 3-6 months. Take medication as prescribed. Get annual eye exam. Encouraged LLOYD/Statin if able to tolerate. Encouraged weight control and encouraged diabetic diet and exercise. Not as tightly controlled as needs to be. Continue Metformin. Add Invokana. Monitor kidney function. Encouraged improved diet for DM and Fatty liver Immunizations Immunization Administration Dates Next Due Hep A, Adult 05/30/2018 Influenza, Quadrivalent, Spl it, Preservative Free, Intramuscular 08/25/2021,06/29/2020 Influenza, Trivalent, Preser vative Free, Intramuscular 11/18/2024 Influenza, Unspecified 10/07/2024(Deferr ed: Patient Refused),11/07/2022(Deferred: Patient Refused),11/07/2021(Deferred: Patient Refused),07/07/2019 Tdap 10/19/2019 Social History Tobacco Use Types Packs/Day Years Used Date Smoking Tobacco: Never Smokeless Tobacco: Never Tobacco Cessation:Counseling Given: Not Answered Alcohol Use Standard Drinks/Week Comments No 0 (1 standard drink = 0.6 oz pur e alcohol) AUDIT-C Answer Date Recorded Q1: How often do you have a drink containing alc ohol? Monthly or less 11/18/2024 Q2: How many drinks containi ng alcohol do you have on a typical day when you are drinking? 1 or 2 11/18/2024 Q3: How often do you have si x or more drinks on one occasion? Less than monthly 11/18/2024 PHQ-2 Answer Date Recorded PHQ-2 Total Score (If total score is 3 or more points, staff should administer the PHQ-9) 0 11/18/2024 PHQ-9 Answer Date Recorded PHQ-9 Total Score 20 09/14/2024 Sex and Gender Information Value Date Recorded Sex Assigned at Not on file Legal Sex Male 10:06 AM [employer] Gender Identity Male 10/12/2020 3:47 PM [employer]IAISON Sexual Orientation Straight 10/12/2020 3: 47 PM [employer] COMM[employer]ITY LIAISON Last Filed Vital Signs Vital Sign Reading Time Taken Comments Blood Pressure 106/64 11/18/2024 3:11 PM [employer] COMM[employer]ITY [employer]IAISON Pulse 73 11/18/2024 3:11 PM [employer] COMM[employer]ITY [employer]IAISON Temperature 36.9 C (98.4 F) 11/18/2024 3:11 PM [employer] COMM[employer]ITY [employer]IAISON Respiratory Rate 18 05/24/2022 3:06 PM CDT Oxygen Saturation 99% 11/18/2024 3:11 PM [employer]ET[employer] COMM[employer]ITY LIAISON Inhaled Oxygen Concentration - - Weight 93.2 kg (205 lb 6.4 oz) 11/18/2024 3:11 P M [employer]ISON Height 182.9 cm (6') 09/14/2024 3:43 PM [employer] COMM[employer]ITY LIAISON Body Mass Index 27.86 09/14/2024 3:43 PM [employer]ETING COMM[employer]ITY LIAISON Plan of Treatment Not on file Procedures Procedure Name Priority Date/Time Associated Diagnosis Comments DIABETES EYE EXAM Routine 11/19/2024 2:45 PM [employer]ISON COMPREHENSIVE METABOLIC PANEL Routine 11/12/2024 3:08 PM [employer] COMM[employer]ITY LIAISON Type 2 diabetes mellitus without complication, without long-term current use of insulin (HCC) HEMOGLOBIN A1C Routine 11/12/2024 3:08 PM [employer]ET[employer] COMM[employer]ITY LIAISON Type 2 diabetes mellitus without complication, without long-term current use of insulin (HCC) LIPID PANEL Routine 11/12/2024 3:08 PM [employer]ETING COMM[employer]ITY LIAISON Type 2 diabetes mellitus without complication, without long-term current use of insulin (HCC) ALBUMIN CREATININE RATIO, URINE Routine 11/12/2024 3:08 PM [employer] COMM[employer]ITY LIAISON Type 2 diabetes mellitus without complication, without long-term current use of insulin (HCC) HEPATITIS PANEL, ACUTE Routine 4 3:17 PM [employer] COMM[employer]ITY LIAISON Screening examination for STD (sexually transmitted disease) from Last 3 Months or Most Recently Relevant to Health Maintenance Results * DIABETES EYE EXAM (11/19/2024 2:45 PM MARKETING COMMUNITY LIAISON) SCRIBED DIABETIC DILATED EYE EXAM Abnormal Comment:myopic astigmatism us Historical Provider HEALTH MAINTENANCE Edited Result - Final * Albumin Creatinine Ratio, Urine (11/12/2024 3:08 PM MARKETING COMM[employer]ITY LIAISON) Creatinine, ur 87 20 - 320 mg/dL [facility] Microalbumin, ur 0.2 See Note: mg/dL [facility] Comment: Reference Range: Reference Range Not established Microalbumin/creat ratio 2 <30 mg/g creat [facility] Comment: The ADA defines abnormalities in albumin excretion as follows: Albuminuria Category Result (mg/g creatinine) Normal to Mildly increased <30 Moderately increased 30-299 Severely increased > OR = 300 The ADA recommends that at least two of three specimens collected within a 3-6 month period be abnormal before considering a patient to be within a diagnostic category. Urine 11/12/2024 3:08 PM [employer] COMM[employer]ITY LIAISON 11/12/2024 3:09 PM MARKETING COMM[employer]ITY LIAISON Narrative [facility] - 11/13/2024 5:11 AM MARKETING COMMUNITY LIAISON FASTING:YES FASTING: YES Janine BROOKE LAB URINE ORDERABLES Final Result Performing Organization Address City/[facility]/ZIP Co de Phone Number [facility] [id number] [place] [address] * Hemoglobin A1c (11/12/2024 3:08 PM MARKETING COMMUNITY LIAISON) Hgb A1C 4.6 <5.7 % of total Hgb [facility] Comment: For the purpose of screening for the presence of diabetes: <5.7% Consistent with the absence of diabetes 5.7-6.4% Consistent with increased risk for diabetes (prediabetes) > or =6.5% Consistent with diabetes This assay result is consistent with a decreased risk of diabetes. Currently, no consensus exists regarding use of hemoglobin A1c for diagnosis of diabetes in children. According to [place] Diabetes Association (ADA) guidelines, hemoglobin A1c <7.0% represents optimal control in non- diabetic patients. Different metrics may apply to specific patient populations. Standards of Medical Care in Diabetes(ADA). Blood 11/12/2024 3:08 PM [employer]ING COMM[employer]ITY LIAISON 11/12/2024 3:09 PM MARKETING COMMUNITY LIAISON Narrative [facility] - 11/13/2024 5:11 AM MARKETING COMMUNITY LIAISON FASTING:YES FASTING: YES Janine BROOKE LAB BLOOD ORDERABLES Final Result [facility] [address] [place] [address] * (ABNORMAL) Lipid panel (11/12/2024 3:08 PM MARKETING COMMUNITY LIAISON) Cholesterol 174 <200 mg/dL [facility] HDL 44 > OR = 40 mg/dL [facility] Triglycerides 76 <150 mg/dL [facility] LDL 113(H) mg/dL (calc) [facility] Comment: Reference range: <100 Desirable range <100 mg/dL for primary prevention; <70 mg/dL for patients with CHD or diabetic patients with > or = 2 CHD risk factors. LDL-C is now calculated using the Graeme calculation, which is a validated novel method providing better accuracy than the Friedewald equation in the estimation of LDL-C. Adrian MARIO et al. REJI. 2013;310(19): 7355-6312 (http://education.Donde/faq/KZZ296) Chol/HDL ratio 4.0 <5.0 (calc) Marvin Carter Non-HDL, (LDL+VLDL) 130(H) <130 mg/dL (calc) [facility] Comment: For patients with diabetes plus 1 major ASCVD risk factor, treating to a non-HDL-C goal of <100 mg/dL (LDL-C of <70 mg/dL) is considered a therapeutic option. Blood 11/12/2024 3:08 PM [employer] COMM[employer]ITY LIAISON 11/12/2024 3:09 PM MARKETING COMMUNITY LIAISON Narrative [facility] - 11/13/2024 5:11 AM MARKETING COMM[employer]ITY LIAISON FASTING:YES FASTING: YES Janine BROOKE LAB BLOOD ORDERABLES Final Result [facility] [address] [place] [address] * Comprehensive metabolic panel (11/12/2024 3:08 PM MARKETING COMMUNITY LIAISON) [facility] Glucose 82 65 - 99 mg/dL [facility] Comment: Fasting reference interval BUN 12 7 - 25 mg/dL [facility] Creatinine 0.93 0.60 - 1.29 mg/dL Marvin Carter eGFR 104 > OR = 60 mL/min/1.7 3m2 [facility] BUN/creat ratio SEE NOTE: (calc) Marvin [facility] Comment: Not Reported: BUN and Creatinine are within reference range. Sodium 141 135 - 146 mmol/L [facility] [employer] Potassium, pl 4.1 3.5 - 5.3 mmol/L [facility] Chloride 104 98 - 110 mmol/L [facility] [place] [employer] CO2 31 20 - 32 mmol/L [facility] Calcium 9.7 8.6 - 10.3 mg/dL [facility] Protein, sr 6.8 6.1 - 8.1 g/dL [facility] Albumin 4.5 3.6 - 5.1 g/dL [facility] GLOBULIN 2.3 1.9 - 3.7 g/dL (calc) [facility] Alb/glob ratio 2.0 1.0 - 2.5 (calc) [facility] [employer] Bilirubin, total 1.0 0.2 - 1.2 mg/dL [facility] [employer] Alk phos 55 36 - 130 U/L [facility] [employer] AST 16 10 - 40 U/L [facility] ALT (SGPT) 10 9 - 46 U/L [facility] Blood 11/12/2024 3:08 PM [employer]ETING COMM[employer]ITY LIAISON 11/12/2024 3:09 PM MARKETING COMMUNITY LIAISON Narrative [facility] - 11/13/2024 5:11 AM MARKETING COMMUNITY LIAISON FASTING:YES FASTING: YES us Janine BROOKE LAB BLOOD ORDERABLES Final Result [facility] [facility] [address] [place] [address] * Hepatitis panel, acute Blood (08/27/2024 3:17 PM MARKETING COMMUNITY LIAISON) Hep A IgM NON-REACTI VE NON-REACT LINDY [facility] Comment: For additional information, please refer to http://1CloudStar.[employer]/faq/PWW732 (This link is being provided for informational/ educational purposes only.) HepBsAg NON-REACTI VE NON-REACT LINDY [facility] Comment: For additional information, please refer to http://1[employer]Star.[employer]/faq/CMP870 (This link is being provided for informational/ educational purposes only.) Hep B core IgM NON-REACTI VE NON-REACT LINDY [facility] Comment: For additional information, please refer to http://[employer]/faq/BQF311 (This link is being provided for informational/ educational purposes only.) Hep C Ab NON-REACTI VE NON-REACT LINDY [facility] Comment: HCV antibody was non-reactive. There is no laboratory evidence of HCV infection. In most cases, no further action is required. However, if recent HCV exposure is suspected, a test for HCV RNA (test code 27264) is suggested. For additional information please refer to http://[employer]/faq/HLZ62c3 (This link is being provided for informational/ educational purposes only.) Blood 08/27/2024 3:17 PM MARKETING COMM[employer]ITY LIAISON 08/27/2024 3:17 PM MARKETING COMMUNITY LIAISON Janine BROOKE LAB MICROBIOLOGY - GENERAL ORDERABLES Final Result [facility] [address] [place] [address] from Last 3 Months or Most Recently Relevant to Health Maintenance Insurance [facility] Care Teams Air Analyst Relationship Specialty Start Date End Date Janine Cardoza PA [address] [facility] [address] [place], [place] [phone] PCP - General Internal Medicine 08/10/19
--- OUTSIDE RECORDS SUMMARY | 2025-02-10 10:01 | XMS_ITS | Clinical Summary ---
Author Organization [facility] Address [address] [place] [address] Care Team Providers Care Public Relations Associate Name Role Phone Janine Cardoza Primary Care Provider [phone] Allergies No known active allergies Medications blood-glucose [...] 11/29/2024 Assessment & Plan (11/29/2024 5:22 PM PROTECTIVE SIGNAL SUPERINTENDENT): Flu vaccine updated in the office today Annual physical exam 11/29/2024 Assessment & Plan (11/29/2024 5:22 PM PROTECTIVE SIGNAL SUPERINTENDENT): Encouraged healthy lifestyle, good nutrition and exercise. Encouraged Calcium and Vitamin D and weight bearing exercise for bone health. Reviewed immunizations Reviewed age appropirate screenings. BMI 27.0-27.9,adult 08/11/2024 Assessment & Plan (11/29/2024 5:21 PM PROTECTIVE SIGNAL SUPERINTENDENT): Weight/BMI is in healthy range. Continue healthy lifestyle to maintain. Assessment & Plan (09/14/2024 3:44 PM PROTECTIVE SIGNAL SUPERINTENDENT): Discussed the patient's BMI. The BMI is above average. BMI management plan is completed. BMI Follow-up includes: nutrition counseling, exercise counseling and education provided. Assessment & Plan (08/11/2024 1:41 PM PROTECTIVE SIGNAL SUPERINTENDENT): Weight/BMI is in healthy range. Continue healthy lifestyle to maintain. Moderate episode of recurrent major depressive d isorder 08/11/2024 Assessment & Plan (11/29/2024 5:22 PM PROTECTIVE SIGNAL SUPERINTENDENT): Continue Wellbutrin XL 150, trazodone 150 for sleep and Lexapro 20 Assessment & Plan (09/26/2024 1:34 PM PROTECTIVE SIGNAL SUPERINTENDENT): Depression symptoms are still present. He is under a lot of stress as he is currently going through a divorce and juggling children as well as work. Continue Wellbutrin XL 150. Increase the Lexapro to 20 mg. Follow-up 6-8 weeks to reassess or sooner for any other problems or concerns. Strongly encouraged continued counseling Assessment & Plan (09/13/2024 12:45 AM PROTECTIVE SIGNAL SUPERINTENDENT): Patient is under lot of stress, depression. [...] concerns Assessment & Plan (08/12/2024 12:17 AM PROTECTIVE SIGNAL SUPERINTENDENT): Discussed depression at length. Currently no suicidal [...] (HSV) Assessment & Plan (11/29/2024 5:22 PM PROTECTIVE SIGNAL SUPERINTENDENT): Continue Valtrex daily for suppression Assessment & Plan (09/26/2024 1:34 PM PROTECTIVE SIGNAL SUPERINTENDENT): Continue Valtrex p.r.n. Assessment & Plan (09/13/2024 12:46 AM PROTECTIVE SIGNAL SUPERINTENDENT): Continue Valtrex for prevention Assessment & Plan (08/12/2024 12:16 AM PROTECTIVE SIGNAL SUPERINTENDENT): Exposure to HSV through his current partner. [...] 05/24/2022 Assessment & Plan (11/29/2024 5:22 PM PROTECTIVE SIGNAL SUPERINTENDENT): Stressed importance of continued A1c control to minimize the alf effects of diabetes. Bring accuchecks to office when instructed to do so. Check A1c about every 3-6 months. Take medication as prescribed. Get annual eye exam. Encouraged LLOYD/Statin if able to tolerate. Encouraged weight control and encouraged diabetic diet and exercise. 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 Bring accuchecks to office [...] visit. Assessment & Plan (09/13/2024 12:45 AM PROTECTIVE SIGNAL SUPERINTENDENT): Stressed importance of continued A1c control to minimize the alf effects of diabetes. Bring accuchecks to office when instructed to do so. Check A1c about every 3-6 months. Take medication as prescribed. Get annual eye exam. Encouraged LLOYD/Statin if able to tolerate. Encouraged weight control and encouraged diabetic diet and exercise. Continue Mounjaro 15. A1c is tightly controlled. 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 Bring accuchecks to office when instructed to do so. Check A1c about every 3-6 months. Take medication as prescribed. Get annual eye exam. Encouraged LLOYD/Statin if able to tolerate. Encouraged weight control and encouraged diabetic diet and exercise. 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 Bring accuchecks to office [...] of continued A1c control to minimize the alf effects of diabetes. Bring accuchecks to office [...] transitioned to much RO. Will stop the [id number] transitioned to majora 5 and continue to increase as tolerated. 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 Bring accuchecks to office [...] of continued A1c control to minimize the alf effects of diabetes. Bring accuchecks to office [...] 10/2020 Assessment & Plan (11/13/2020 6:16 PM PROTECTIVE SIGNAL SUPERINTENDENT): Continue to monitor. If sxs reoccur he is to call. His 10 days quarrantine has completed. Erectile dysfunction associa jamaal with type 2 diabetes mellitus 10/15/2019 Assessment & Plan (04/12/2024 6:59 PM CDT): Continue Viagra p.r.n. 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 Bring accuchecks to office [...] pharmacy Assessment & Plan (08/25/2021 7:24 PM PROTECTIVE SIGNAL SUPERINTENDENT): Uloric is tolerated well. His uric acid level is 2.7 so suspect that his right toe pain may not be gout related. Will check an x-ray. Assessment & Plan (11/13/2020 6:19 PM PROTECTIVE SIGNAL SUPERINTENDENT): Continue with uloric Assessment & Plan (06/29/2020 1:37 PM CDT): Uric acid level is tightly controlled with the Uloric. Continue to monitor diet Assessment & Plan (11/07/2019 11:02 AM PROTECTIVE SIGNAL SUPERINTENDENT): Continue Uloric Monitor diet Primary insomnia 10/15/2019 Assessment & Plan (09/26/2024 1:32 PM PROTECTIVE SIGNAL SUPERINTENDENT): Patient continues to have difficulty sleeping. Probably [...] pharmacy Assessment & Plan (08/25/2021 7:27 PM PROTECTIVE SIGNAL SUPERINTENDENT): This is a significant, separately identifiable problem [...] assistance Assessment & Plan (11/07/2019 11:04 AM PROTECTIVE SIGNAL SUPERINTENDENT): Discussed treatment options. Encouraged good sleep hygeine -- will continue to monitor. 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 Bring accuchecks to office [...] loss. Assessment & Plan (09/26/2024 1:33 PM PROTECTIVE SIGNAL SUPERINTENDENT): Stressed importance of continued A1c control to minimize the alf effects of diabetes. Bring accuchecks to office [...] of continued A1c control to minimize the alf effects of diabetes. Bring accuchecks to office [...] transitioned to much RO. Will stop the [id number] transitioned to majora 5 and continue to increase as tolerated. Assessment & Plan (12/16/2022 6:25 PM CDT): Encouraged patient to follow low fat/low chol diet like the Mediterranean diet. Increase good fats in the diet. Increase exercise. Monitor labs as needed. 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 Bring accuchecks to office [...] monitor Assessment & Plan (08/25/2021 7:24 PM PROTECTIVE SIGNAL SUPERINTENDENT): Encouraged patient to follow fat/low chol diet like the Mediterranean diet. Increase good fats in the diet. Increase exercise. Monitor labs as needed. Continue Crestor Assessment & Plan (11/13/2020 6:18 PM PROTECTIVE SIGNAL SUPERINTENDENT): Encouraged patient to follow fat/low chol diet [...] done. Assessment & Plan (11/07/2019 11:05 AM PROTECTIVE SIGNAL SUPERINTENDENT): This is a significant, separately identifiable problem [...] p.r.n. Assessment & Plan (08/25/2021 7:24 PM PROTECTIVE SIGNAL SUPERINTENDENT): Continue omeprazole. Will change to 40 mg tablets 1 daily. Assessment & Plan (06/29/2020 1:34 PM CDT): Continue PPI Assessment & Plan (11/07/2019 11:01 AM PROTECTIVE SIGNAL SUPERINTENDENT): Currently stable without medication Elevated liver enzymes 10/15/2019 Assessment & Plan (12/15/2023 10:45 PM CDT): Continue to monitor. May consider liver ultrasound to rule out fatty liver. Assessment & Plan (06/29/2020 1:41 PM CDT): Continue per Dr. Fraga. Await workup completion to determine start of statin Assessment & Plan (11/07/2019 11:05 AM PROTECTIVE SIGNAL SUPERINTENDENT): This is a significant, separately identifiable problem [...] 09/13/2024 Assessment & Plan (08/12/2024 12:19 AM PROTECTIVE SIGNAL SUPERINTENDENT): Patient has had a persistent cough for almost 10 days. He did a negative COVID at home. Is becoming productive with some discoloration. Will send out Augmentin 875 b.i.d. times 10 days. Will send Tessalon Perles for the cough. Continue with jnzp-but-lcrlpia cough medicines as needed. If symptoms worsen or do not improve he is to follow up immediately. Screening examination for ST D (sexually transmitted disease) 08/11/2024 09/13/2024 Assessment & Plan (08/12/2024 12:17 AM PROTECTIVE SIGNAL SUPERINTENDENT): Will check STD screening including HIV hepatitis [...] and education provided. BMI 35.0-35.9,adult 11/26/2022 05/30/20 23 Assessment & Plan (11/26/2022 4:10 PM PROTECTIVE SIGNAL SUPERINTENDENT): Discussed the patient's BMI. The BMI is [...] 01/19/20 Assessment & Plan (08/25/2021 10:00 AM PROTECTIVE SIGNAL SUPERINTENDENT): Obesity is unchanged. Discussed the patient's BMI. [...] provided. Assessment & Plan (08/25/2021 10:00 AM PROTECTIVE SIGNAL SUPERINTENDENT): Obesity is unchanged. Discussed the patient's BMI. The BMI is above average. BMI management plan is completed. BMI Follow-up includes: nutrition counseling, exercise counseling and education provided. Chronic toe pain, right foot 08/25/2021 09/26/2024 Assessment & Plan (08/25/2021 7:26 PM PROTECTIVE SIGNAL SUPERINTENDENT): This is a significant, separately identifiable problem [...] re-evaluate Assessment & Plan (08/25/2021 7:26 PM PROTECTIVE SIGNAL SUPERINTENDENT): Probably multifactorial. Check labs and followup to re-evaluate Chronic nasal congestion 10/16/2020 Assessment & Plan (10/16/2020 9:41 AM PROTECTIVE SIGNAL SUPERINTENDENT): Patient to presume positive COVID until results are available and self isolate for 14 days from the onset of sxs. Check COVID test thru [facility] collection site in [place]. Treat sxs with Tylenol, Cough/cold medication otc [...] water often. If needed, use a hand asw specialist that contains at least 60% alcohol. Clean [...] 12/16/2022 Assessment & Plan (08/25/2021 7:25 PM PROTECTIVE SIGNAL SUPERINTENDENT): Flu vaccine updated Assessment & Plan (06/29/2020 1:41 PM CDT): Updated in office today Other fatigue 11/07/2019 08/25/2021 Assessment & Plan (11/07/2019 11:06 AM PROTECTIVE SIGNAL SUPERINTENDENT): Probably multifactorial. Check labs and followup to re-evaluate BMI 37.0-37.9, adult 10/19/2019 020 Assessment & Plan (10/19/2019 3:56 PM PROTECTIVE SIGNAL SUPERINTENDENT): Obesity is unchanged. Discussed the patient's BMI. [...] provided. Assessment & Plan (10/19/2019 3:56 PM PROTECTIVE SIGNAL SUPERINTENDENT): Obesity is unchanged. Discussed the patient's BMI. [...] screenings. Assessment & Plan (08/25/2021 7:25 PM PROTECTIVE SIGNAL SUPERINTENDENT): Encouraged healthy lifestyle, good nutrition and exercise. Encouraged Calcium and Vitamin D and weight bearing exercise for bone health. Reviewed immunizations Reviewed age appropirate screenings. Assessment & Plan (06/29/2020 1:37 PM CDT): Encouraged healthy lifestyle, good nutrition and exercise. Encouraged Calcium and Vitamin D and weight bearing exercise for bone health. Reviewed immunizations Reviewed age appropirate screenings. Assessment & Plan (11/07/2019 11:03 AM PROTECTIVE SIGNAL SUPERINTENDENT): Encouraged healthy lifestyle, good nutrition and exercise. Encouraged Calcium and Vitamin D and weight bearing exercise for bone health. Reviewed immunizations Reviewed age appropirate screenings. 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 Bring accuchecks to office [...] pancreatitis. Assessment & Plan (08/25/2021 7:26 PM PROTECTIVE SIGNAL SUPERINTENDENT): Stressed importance of continued A1c control to minimize the alf effects of diabetes. Bring accuchecks to office [...] of continued A1c control to minimize the alf effects of diabetes. Bring accuchecks to office when instructed to do so. Check A1c about every 3-6 months. Take medication as prescribed. Get annual eye exam. Encouraged LLOYD/Statin if able to tolerate. Encouraged weight control and encouraged diabetic diet and exercise. Continue Invokana and metformin. He will check with his insurance regarding preferred SGLT. 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 Bring accuchecks to office [...] improved diet for DM and Fatty liver Encounters Date Type Department Care Team Description 11/19/2024 Orders Only [facility] Medical [facility] Family Medicine [address] [place] [address] [place] [phone] Provider, MD Kayla 11/18/2024 3:30 PM PROTECTIVE SIGNAL SUPERINTENDENT Office Visit [facility] [address] [place] [address] [place] [phone] Janine Cardoza PA Annual physical exam (Primary Dx); Need for influenza vaccination; Controlled type 2 diabetes mellitus without complication, without long-term current use of insulin (HCC); Type 2 diabetes mellitus with hyperlipidemia (HCC); Exposure to herpes simplex virus (HSV); Moderate episode of recurrent major depressive disorder (HCC); BMI 27.0-27.9,adult from Last 3 Months Immunizations Immunization Administration Dates Next Due Hep A, Adult 05/30/2018 Influenza, Quadrivalent, Spl it, Preservative Free, Intramuscular 08/25/2021,06/29/2020 Influenza, Trivalent, Preser vative Free, Intramuscular 11/18/2024 Influenza, Unspecified 10/07/2024(Deferr ed: Patient Refused),11/07/2022(Deferred: Patient Refused),11/07/2021(Deferred: Patient Refused),07/07/2019 Tdap 10/19/2019 Medical History Medical History Date Comments Disorder of thyroid Thyroid dise ase Family History Medical History Relation Name Comments Arthritis Father Diabetes type II Father Diabetes me llitus type 2; Hypertension Father Arthritis Mother Diabetes Mother Other Mother hemochromitosis ; Diabetes type II Other 1 Family hist ory of Diabetes -Type II; Other Other 2 No family histo ry of Cancer; Other Other 3 No family histo ry of Coronary artery disease; Other Other 4 No family histo ry of Renal disease; Seizures Sister Seizure disorde r; Relation Name Status Comments Father Alive Mother Alive Other 1 Other 2 Other 3 Other 4 Sister Alive Social History Tobacco Use Types Packs/Day Years [...] on file Legal Sex Male 10:06 AM PROTECTIVE SIGNAL SUPERINTENDENT Gender Identity Male 10/12/2020 3:47 PM PROTECTIVE SIGNAL SUPERINTENDENT Sexual Orientation Straight 10/12/2020 3: 47 PM PROTECTIVE SIGNAL SUPERINTENDENT Obstetrics History Last Filed Vital Signs Vital Sign Reading Time Taken Comments Blood Pressure 106/64 11/18/2024 3:11 PM PROTECTIVE SIGNAL SUPERINTENDENT Pulse 73 11/18/2024 3:11 PM PROTECTIVE SIGNAL SUPERINTENDENT Temperature 36.9 C (98.4 F) 11/18/2024 3:11 PM PROTECTIVE SIGNAL SUPERINTENDENT Respiratory Rate 18 05/24/2022 3:06 PM CDT Oxygen Saturation 99% 11/18/2024 3:11 PM PROTECTIVE SIGNAL SUPERINTENDENT Inhaled Oxygen Concentration - - Weight 93.2 kg (205 lb 6.4 oz) 11/18/2024 3:11 P M PROTECTIVE SIGNAL SUPERINTENDENT Height 182.9 cm (6') 09/14/2024 3:43 PM PROTECTIVE SIGNAL SUPERINTENDENT Body Mass Index 27.86 09/14/2024 3:43 PM PROTECTIVE SIGNAL SUPERINTENDENT Plan of Treatment Health Maintenance Due Date Last Done Comments Varicella Vaccines (1 of 2 - 13+ 2-dose series) 1994 Hepatitis B Screening 1999 Pneumococcal vaccine <65 (1 of 2 - PCV) 2000 Foot Exam 10/19/2020 10/19/2019 Covid-19 Vaccine ( - 2023- season) 2024 04/14/2021 Hemoglobin A1C 05/12/2025 11/12/2024, 03/08, 05/25/2023, Additional history exists Albumin Creatinine Ratio, Urine 11/12/2025 11/12/2024, 03/31/2024, 11/22/2022 Lipid Panel 11/12/2025 11/12/2024, 03/08, 05/25/2023, Additional history exists eGFR 11/12/2025 11/12/2024, 03/08, 05/25/2023, Additional history exists Depression Screening 11/18/2025 11/18/2024, 09/14/2024, 09/14/2024, Additional history exists Regular Well Visit/Exam 18-64 11/18/2025 11/18/2024, 12/02/2023, 11/26/2022, Additional history exists Dilated Eye Exam 11/19/2025 11/19/2024, , 02/05/2019 DTaP/Tdap/Td Vaccine (2 - Td or Tdap) 10/19/2029 10/19/2019 Hepatitis C Screening Completed 08/27/2024 , 03/07/2023, 02/28/2017, Additional history exists Influenza Vaccine Completed 11/18/2024, , 06/29/2020, Additional history exists HPV Vaccines Aged Out No longer eligi ble based on patient's age to complete this topic Procedures Procedure Name Priority Date/Time Associated Diagnosis Comments DIABETES EYE EXAM Routine 11/19/2024 2:45 PM PROTECTIVE SIGNAL SUPERINTENDENT COMPREHENSIVE METABOLIC PANEL Routine 11/12/2024 3:08 PM PROTECTIVE SIGNAL SUPERINTENDENT Type 2 diabetes mellitus without complication, without long-term current use of insulin (HCC) HEMOGLOBIN A1C Routine 11/12/2024 3:08 PM PROTECTIVE SIGNAL SUPERINTENDENT Type 2 diabetes mellitus without complication, without long-term current use of insulin (HCC) LIPID PANEL Routine 11/12/2024 3:08 PM PROTECTIVE SIGNAL SUPERINTENDENT Type 2 diabetes mellitus without complication, without long-term current use of insulin (HCC) ALBUMIN CREATININE RATIO, URINE Routine 11/12/2024 3:08 PM PROTECTIVE SIGNAL SUPERINTENDENT Type 2 diabetes mellitus without complication, without long-term current use of insulin (HCC) HEPATITIS PANEL, ACUTE Routine 4 3:17 PM PROTECTIVE SIGNAL SUPERINTENDENT Screening examination for STD (sexually transmitted disease) from Last 3 Months or Most Recently Relevant to Health Maintenance Results * DIABETES EYE EXAM (11/19/2024 2:45 PM PROTECTIVE SIGNAL SUPERINTENDENT) SCRIBED DIABETIC DILATED EYE EXAM Abnormal Comment:myopic astigmatism us Historical Provider HEALTH MAINTENANCE Edited Result - Final * Albumin Creatinine Ratio, Urine (11/12/2024 3:08 PM PROTECTIVE SIGNAL SUPERINTENDENT) Creatinine, ur 87 20 - 320 mg/dL [...] a diagnostic category. Urine 11/12/2024 3:08 PM PROTECTIVE SIGNAL SUPERINTENDENT 11/12/2024 3:09 PM PROTECTIVE SIGNAL SUPERINTENDENT Narrative [facility] - 11/13/2024 5:11 AM PROTECTIVE SIGNAL SUPERINTENDENT FASTING:YES FASTING: YES Janine BROOKE LAB URINE ORDERABLES Final Result Performing Organization Address City/[facility]/ZIP Co de Phone Number [place] [address] [place] [address] * Hemoglobin A1c (11/12/2024 3:08 PM PROTECTIVE SIGNAL SUPERINTENDENT) Hgb A1C 4.6 <5.7 % of total Hgb [facility] Comment: For the purpose of screening for the presence of diabetes: <5.7% Consistent with the absence of diabetes 5.7-6.4% Consistent with increased risk for diabetes (prediabetes) > or =6.5% Consistent with diabetes This assay result is consistent with a decreased risk of diabetes. Currently, no consensus exists regarding use of hemoglobin A1c for diagnosis of diabetes in children. According to [place] Diabetes Association (ADA) guidelines, hemoglobin A1c <7.0% represents optimal control in non- diabetic patients. Different metrics may apply to specific patient populations. Standards of Medical Care in Diabetes(ADA). Blood 11/12/2024 3:08 PM PROTECTIVE SIGNAL SUPERINTENDENT 11/12/2024 3:09 PM PROTECTIVE SIGNAL SUPERINTENDENT Narrative [facility] - 11/13/2024 5:11 AM PROTECTIVE SIGNAL SUPERINTENDENT FASTING:YES FASTING: YES Janine BROOKE LAB BLOOD ORDERABLES Final Result Performing Organization Address City/[facility]/ZIP Co de Phone Number [facility] [address] [place] [phone] * (ABNORMAL) Lipid panel (11/12/2024 3:08 PM PROTECTIVE SIGNAL SUPERINTENDENT) Pathologist [facility] Cholesterol 174 <200 mg/dL [facility] allen Raul HDL 44 > OR = 40 mg/dL [facility] allen Raul Triglycerides 76 <150 mg/dL [facility]ol[facility] Carter LDL 113(H) mg/dL (calc) [facility] aleln Raul Comment: Reference range: <100 Desirable range <100 mg/dL for primary prevention; <70 mg/dL for patients with CHD or diabetic patients with > or = 2 CHD risk factors. LDL-C is now calculated using the Graeme calculation, which is a validated novel method providing better accuracy than the Friedewald equation in the estimation of LDL-C. Adrian SS et al. REJI. 2013;310(19): 7590-7748 (http://education.Xmybox/faq/RTY265) Chol/HDL ratio 4.0 <5.0 (calc) [facility] ProductionsYolanda allen Raul Non-HDL, (LDL+VLDL) 130(H) <130 mg/dL (calc) [facility] allen Raul Comment: For patients with diabetes plus 1 major ASCVD risk factor, treating to a non-HDL-C goal of <100 mg/dL (LDL-C of <70 mg/dL) is considered a therapeutic option. Blood 11/12/2024 3:08 PM PROTECTIVE SIGNAL SUPERINTENDENT 11/12/2024 3:09 PM PROTECTIVE SIGNAL SUPERINTENDENT Narrative [facility] - 11/13/2024 5:11 AM PROTECTIVE SIGNAL SUPERINTENDENT FASTING:YES FASTING: YES Janine BROOKE LAB BLOOD ORDERABLES Final Result [facility] [address] [place] [phone] * Comprehensive metabolic panel (11/12/2024 3:08 PM PROTECTIVE SIGNAL SUPERINTENDENT) Pathologist [facility] Glucose 82 65 - 99 mg/dL [facility] [employer]ol[facility] allen Raul Comment: Fasting reference interval BUN 12 7 - 25 mg/dL [facility] [employer] ProductionsYolanda tiffany Carter Creatinine 0.93 0.60 - 1.29 mg/dL Marvin Enrich Social ProductionsYoalnda allen Raul eGFR 104 > OR = 60 mL/min/1.7 3m2 [facility] BUN/creat ratio SEE NOTE: 6 - 22 (calc) [facility] Comment: Not Reported: BUN and Creatinine are within reference range. Sodium 141 135 - 146 mmol/L [facility] Potassium, pl 4.1 3.5 - 5.3 mmol/L [facility] Chloride 104 98 - 110 mmol/L [facility] CO2 31 20 - 32 mmol/L [facility] Calcium 9.7 8.6 - 10.3 mg/dL [facility] Protein, sr 6.8 6.1 - 8.1 g/dL [facility] Albumin 4.5 3.6 - 5.1 g/dL [facility] GLOBULIN 2.3 1.9 - 3.7 g/dL (calc) [facility] Alb/glob ratio 2.0 1.0 - 2.5 (calc) [facility] Bilirubin, total 1.0 0.2 - 1.2 mg/dL [facility]olanda Carter Alk phos 55 36 - 130 U/L [facility] AST 16 10 - 40 U/L [facility] ALT (SGPT) 10 9 - 46 U/L [facility] Carter Blood 11/12/2024 3:08 PM PROTECTIVE SIGNAL SUPERINTENDENT 11/12/2024 3:09 PM PROTECTIVE SIGNAL SUPERINTENDENT Narrative [facility] - 11/13/2024 5:11 AM PROTECTIVE SIGNAL SUPERINTENDENT FASTING:YES FASTING: YES Janine BROOKE LAB BLOOD ORDERABLES Final Result [facility] [address] [place] [address] * Hepatitis panel, acute Blood (08/27/2024 3:17 PM PROTECTIVE SIGNAL SUPERINTENDENT) Hep A IgM NON-REACTI VE NON-REACT LINDY [facility] Comment: For additional information, please refer to http://education.[facility]/faq/DID859 (This link is being provided for informational/ educational purposes only.) HepBsAg NON-REACTI VE NON-REACT LINDY [facility] Comment: For additional information, please refer to http://Jammin Java.[facility]/faq/BVM781 (This link is being provided for informational/ educational purposes only.) Hep B core IgM NON-REACTI VE NON-REACT LINDY [facility] Comment: For additional information, please refer to http://Jammin Java.[facility]/faq/SDV678 (This link is being provided for informational/ educational purposes only.) Hep C Ab NON-REACTI VE NON-REACT LINDY [facility] Comment: HCV antibody was non-reactive. There is no laboratory evidence of HCV infection. In most cases, no further action is required. However, if recent HCV exposure is suspected, a test for HCV RNA (test code 63496) is suggested. For additional information please refer to http://[employer]/faq/XLX65t9 (This link is being provided for informational/ educational purposes only.) Blood 08/27/2024 3:17 PM PROTECTIVE SIGNAL SUPERINTENDENT 08/27/2024 3:17 PM PROTECTIVE SIGNAL SUPERINTENDENT [facility] - GENERAL ORDERABLES Final Result Performing Organization Address City/State/[facility] Co de Phone Number [facility] [address] [place] [address] from Last 3 Months or Most Recently Relevant to Health Maintenance Insurance [facility] Care Teams Public Relations Associate Relationship Specialty Start Date End Date Janine Cardoza PA [address] [place] [address] PCP - General Internal Medicine 08/10/19
--- OUTSIDE RECORDS SUMMARY | 2025-02-10 10:01 | XMS_ITS | Clinical Summary ---
Author Organization [facility] Address [address], [address] [address] Phone Care Team Providers Care Lead Supply Worker Name Role Phone Janine Cardoza PAC Primary Care Provider [phone] Allergies No known active allergies Medications metFORMIN (GLUCOPHAGE-XR) 500 MG TABLET SR 24 HR 2 times daily. 11/11/2019 Active INVOKANA 100 MG Tablet every morning. 10/23/2019 Active febuxostat (ULORIC) 80 MG Tablet every morning. 11/11/2019 Active Multiple Vitamin (MULTI-VITAMIN PO) Take by mouth every morning. Active [place]-3 Fatty Acids (FISH OIL PO) Take by mouth daily (with lunch). Active omeprazole (PriLOSEC) 20 MG CAPSULE DELAYED RELEASEIndicati ons:Multiple gastric ulcers TAKE 1 CAPSULE BY MOUTH TWICE DAILY 180 Cap 10/25/2020 Active Family History Medical History Relation Name Comments Diabetes Father Gout Father Other-comment Mother Gallstones Seizures Sister Relation Name Status Comments Father Mother Sister Social History Tobacco Use Types Packs/Day Years Used Date Smoking Tobacco: Never Smokeless Tobacco: Never Tobacco Cessation:Counseling Given: No Alcohol Use Standard Drinks/Week Comments Yes 0 (1 standard drink = 0.6 oz pur e alcohol) rarely Sex and Gender Information Value Date Recorded Sex Assigned at Not on file Legal Sex Male 12:16 AM CDT Gender Identity Not on file Sexual Orientation Not on file Last Filed Vital Signs Vital Sign Reading Time Taken Comments Blood Pressure 113/77 12/02/2019 9:07 AM YOUTH OFFICER Pulse 76 12/02/2019 9:07 AM YOUTH OFFICER Temperature 36 C (96.8 F) 12/02/2019 9:07 AM YOUTH OFFICER Respiratory Rate 21 12/02/2019 9:07 AM YOUTH OFFICER Oxygen Saturation 98% 12/02/2019 9:07 AM YOUTH OFFICER Inhaled Oxygen Concentration - - Weight 122.5 kg (270 lb) 11/20/2019 9:14 AM YOUTH OFFICER Height 182.9 cm (6') 11/20/2019 9:14 AM YOUTH OFFICER Body Mass Index 36.62 11/20/2019 9:14 AM YOUTH OFFICER Plan of Treatment Health Maintenance Due Date Last Done Comments Hepatitis B Immunization (1 of 3 - 19+ 3-dose series) 2000 Influenza Immunization (#1) 2024 07/07/2019 SARS-COV-2 Immunization ( - 2023- season) 2024 04/14/2021 Respiratory Syncytial Virus (RSV) Immunization (Adult) (1 - 1-dose 75+ series) 2056 DTaP/Tdap/Td Immunization Discontinued 10/19/2019 TdaP Immunization Completed 10/19/2019 Hepatitis C Virus (HCV) Screening Completed 11/20/2019, 11/20/2019, 11/20/2019 Meningococcal Immunization (ACWY) Aged Out No longer eligible based on patient's age to complete this topic Pneumococcal Immunization Combined Aged Out No longer eligible based on patient's age to complete this topic Rotavirus Immunization Aged Out No lo nger eligible based on patient's age to complete this topic Procedures Procedure Name Priority Date/Time Associated Diagnosis Comments HCV GENOTYPE SERUM, STOCKTON HCVG Routine 11/20/2019 9:58 AM YOUTH OFFICER Elevated LFTs from Last 3 Months or Most Recently Relevant to Health Maintenance Results * HCV GENOTYPE SERUM, STOCKTON HCVG (11/20/2019 9:58 AM YOUTH OFFICER) HEPATITIS C GENOTYPING Undetected Undetected 11/24/2019 7:57 AM YOUTH OFFICER [facility] Comment: Assay failed to detect HCV RNA. This assay is not intended for HCV RNA detection purposes. ADDITIONAL INFORMATION This test was performed using the Barreto RealTime HCV Genotype II assay ([employer] [place], [place]). Test Performed by: [facility] [address] [place] [address] Pharmacology Associate: Asael Hancock M.D. Ph.D.; CLIA# [id number] Blood specimen (specimen) Venipuncture / Unknown 11/20/2019 9:58 AM YOUTH OFFICER 11/20/2019 9:58 AM YOUTH OFFICER us Dorothea Mclean WELDING MACHINE OPERATOR ARC, SAVINGS COUNSELOR LAB SEND OUTS F inal Result [facility] [address] [place] [address], [place] from Last 3 Months or Most Recently Relevant to Health Maintenance Insurance [facility] Care Teams Lead Supply Worker Relationship Specialty Start Date End Date Janine Cardoza, JOSEPH PCP - General Physician Professor Criminal Justice 11/20/19
--- OUTSIDE RECORDS SUMMARY | 2025-02-10 10:01 | XMS_ITS | Clinical Summary ---
Author Organization [facility] Address [address] [address] Care Team Providers Care Machine Filler Name Role Phone Dorothea Mclean VALVING MACHINE OPERATOR-DIRECTOR NEWS Primary Care Prov ider Unavailable Source Comments [facility]non-owned Affiliates and Associated Physician Practices is amultiple site organization consisting of ambulatory clinics and hospital sitesin [place], [place], [place] and [place]. This disclosure is being madepursuant to the Care Everywhere program and may not contain all information available regarding this patient. Last updated 18.[facility] Allergies No known active allergies Medications * Be aware that medications may not be up to date on this document. Alwaysverify current medications with the patient. metFORMIN ER 24hr (GLUCOPHAGE XR) 500 MG tablet Take 500 mg by mouth 2 times daily 06/29/2020 Active JARDIANCE 10 MG tablet Take 10 mg by mouth once daily 07/01/2020 Active febuxostat (ULORIC) 80 MG tablet Take 80 mg by mouth once daily 06/30/2020 Active omeprazole (PRILOSEC) 20 MG capsule Take 20 mg by mouth at bedtime 03/02/2020 Active fish oil/omega-3 fatty acids (PROMEGA;CARDI- OMEGA 3) 1000 MG capsule Active Multiple Vitamins-Minera ls (MULTIVITAMIN ADULTS PO) Active Active Problems Problem Noted Date Diagnosed Date NAFLD (nonalcoholic fatty liver disease) 020 Overview (09/19/2020): 09/19/20 Fibroscan CAP 342, LSM 8.7 kPa dwp Obesity 06/29/2020 Erectile dysfunction associa jamaal with type 2 diabetes mellitus 10/15/2019 Gastroesophageal reflux disease without esophagi tis 10/15/2019 Type 2 diabetes Gout Immunizations Immunization Administration Dates Next Due HEP A VACCINE, ADULT 05/30/2018 Social History Tobacco Use Types Packs/Day Years Used Date Smoking Tobacco: Never Assessed Sex and Gender Information Value Date Recorded Sex Assigned at Not on file Legal Sex Male 7:33 AM PATHOLOGICAL TECHNICIAN Gender Identity Not on file Sexual Orientation Not on file Last Filed Vital Signs Vital Sign Reading Time Taken Comments Blood Pressure 115/79 09/19/2020 1:53 PM PATHOLOGICAL TECHNICIAN Pulse 88 09/19/2020 1:53 PM PATHOLOGICAL TECHNICIAN Temperature 36.6 C (97.9 F) 09/19/2020 1:53 PM PATHOLOGICAL TECHNICIAN Respiratory Rate 12 09/19/2020 1:53 PM PATHOLOGICAL TECHNICIAN Oxygen Saturation 99% 09/19/2020 1:53 PM PATHOLOGICAL TECHNICIAN Inhaled Oxygen Concentration - - Weight 117 kg (258 lb) 09/19/2020 1:53 PM PATHOLOGICAL TECHNICIAN Height 185.4 cm (6' 1 ) 09/19/2020 1:53 PM PATHOLOGICAL TECHNICIAN Body Mass Index 34.04 09/19/2020 1:53 PM PATHOLOGICAL TECHNICIAN Plan of Treatment Health Maintenance Due Date Last Done Comments HIV SCREENING 1996 DIABETES-SERUM CREATININE 1999 DTAP/TDAP/TD VACCINES (1 - Tdap) 2000 HEPATITIS B VACCINE (1 of 3 - 19+ 3-dose series) 2000 HEPATITIS A VACCINE (2 of 2 - Risk 2-dose series) 11/30/2018 05/30/2018 DIABETES-FOOT EXAM WITH MONOFILAMENT 09/19/2020 DIABETES-HGB A1C 12/26/2020 06/28/2020 DIABETES-STATIN 2021 COVID-19 VACCINE (1 - 2023-2 5 season) 2024 DEPRESSION SCREENING 10/07/2024 DIABETES - URINE PROTEIN SCREENING 10/07/2024 INFLUENZA VACCINE (Season Ended) 2025 06/29/2020, 07/07/2019 ZOSTER VACCINE (1 of 2) 2031 HEPATITIS C SCREENING Completed 09/19/2020 HIB VACCINE Aged Out No longer eligi ble based on patient's age to complete this topic HPV VACCINE Aged Out No longer eligi ble based on patient's age to complete this topic MENINGOCOCCAL (Group B) VACCINE SHARED DECISION-MAKING Aged Out No longer eligible based on patient's age to complete this topic MENINGOCOCCAL GROUPS A/C/Y/W VACCINE Aged Out No longer eligible b ased on patient's age to complete this topic PNEUMOCOCCAL VACCINE Aged Out No long er eligible based on patient's age to complete this topic Goals Goal Patient Goal Type Associated Problems Recent Progress Patient-Stated? Author Medication Management General On track( 020 1:53 PM PATHOLOGICAL TECHNICIAN) Brady Blackmon, RN Note: Expected end date: Interventions: Take all medications as prescribed Let your doctor know right away about any changes in your medications Make sure to request a refill of your medication at least one week prior to your last dose Care Teams Machine Filler Relationship Specialty Start Date End Date Dorothea Mclean, VALVING MACHINE OPERATOR-DIRECTOR NEWS PCP - General Nurse Practitioner 12/31/19
[2025-02-10 10:16] VITALS: BP 130/95; PULSE 68; PULSE 88; RESP 14; RESP 18; O2SAT 100
[2025-02-10 10:17] LABS: Basophils Percent Auto 0.4 % (0.2-1.2); Eosinophils Percent Auto 0.6 % (0-4.4); Hematocrit 42.9 % (42.0-52.0); Hemoglobin 14.3 g/dL (14.0-18.0); Immature Granulocyte Absolute 0.03 K/mm3 (0.00-0.031); Immature Granulocyte Percent A 0.4 % (0-0.5); Lymphocytes Percent Auto 14.6 % (18.3-44.2); Mean Corpuscular HGB Conc 33.3 g/dl (32-36); Mean Corpuscular Volume 89.9 fl (80-100); Monocytes Absolute Auto 0.5 K/mm3 (0.1-0.6); Monocytes Percent Auto 7.3 % (2.6-8.5); Neutrophils Absolute Auto 5.2 K/mm3 (1.3-6.7); Neutrophils Percent Auto 76.7 % (45.5-73.1); Platelet Count Result 203 k/mm3 (150-375); Red Blood Count 4.77 M/mm3 (4.6-6.20); Red Cell Distribution Width 12.5 % (11.5-14.5); White Blood Count 6.8 K/mm3 (4.5-10.0)
[2025-02-10 10:31] VITALS: BP 117/73; PULSE 73; RESP 19; O2SAT 100
[2025-02-10 10:39] LABS: Alanine Aminotransferase 19 U/L (6-50); Albumin Level 4.7 g/dL (3.5-5.1); Alkaline Phosphatase 61 U/L (38-126); Anion Gap 8 mmol/L (4-12); Aspartate Amino Transferase 29 U/L (17-59); Bilirubin,Total 0.9 mg/dL (0.2-1.3); Blood Urea Nitrogen 17 mg/dL (9-20); Calcium 9.3 mg/dL (8.4-10.2); Carbon Dioxide 27 mmol/L (22-30); Chloride 104 mmol/L (98-107); Estimated CRCL calculation 82 ml/min; Estimated Glomerular Filt Rate > 60; Glucose 90 mg/dL (65-110); Potassium 4.5 mmol/L (3.4-5.0); Sodium 139 mmol/L (137-145)
--- NOTE | 2025-02-10 10:40 | ED_ITS ---
HPI - Abdominal Pain General Chief Complaint: Abdominal Pain Stated Complaint: ABD PAIN Time Seen by Provider: 02/10/25 09:43 History of Present Illness HPI narrative: 44-year-old male with no significant past medical history presenting to the emergency department for left-sided flank and abdominal pain that started suddenly this morning associated with nausea and vomiting. He states he was sitting in his recliner when all of sudden he had sudden pain is left-sided lower quadrant radiating towards his back and left flank. He has a strong family history of kidney stones but no personal history to his knowledge. No fever, chills, trauma, testicular pain or testicular swelling. No chest pain or discomfort with breathing. No shortness of breath. No midline back pain. Patient is uncomfortable in vomited several times from the pain. Did not take anything for pain prior to arrival. Was otherwise in his normal state of health Related Data Home Medications ?Medication ?Instructions ?Recorded ?Confirmed ?Last Taken ?Type empagliflozin 10 mg tablet mg 09/28/21 Unknown History (Jardiance) febuxostat 80 mg tablet mg 09/28/21 Unknown History metformin 500 mg tablet,extended mg PO 09/28/21 Unknown History release 24 hr omeprazole 40 mg capsule,delayed 09/28/21 Unknown History release rosuvastatin 10 mg tablet mg 09/28/21 Unknown History trazodone 50 mg tablet 09/28/21 Unknown History Allergies Allergy/AdvReac Type Severity Reaction Status Date / Time No Known Allergies Allergy Verified 02/10/25 10:30 Review of Systems 2 Review of Systems: As reviewed above in HPI [facility] Family History Family History Other Family history non-contributory Exam 2 Narrative: GENERAL: Uncomfortable appearing but not any acute distress, awake and answers questions appropriately HEAD: [Normocephalic, atraumatic.] EYES: [PERRLA and EOMI.] ENT: Nares clear, no rhinorrhea or epistaxis. Mucous membranes moist. NECK: Supple. CHEST: [Clear to auscultation. No respiratory distress.] HEART: [Regular rate and rhythm]. No murmur heard. [Normal peripheral pulses.] ABDOMEN: [Soft, nondistended], [nontender], [No rigidity or guarding] EXTREMITIES: Normal range of motion. [No edema.] SKIN: Warm, dry, no rash. NEURO: [No focal deficits]. Alert and oriented [x3.] PSYCH: [Normal mood and affect.] Course Vital Signs Vital signs: Vital Signs Temperature 36.5 C 02/10/25 09:40 Pulse Rate 81 02/10/25 09:40 Respiratory Rate 15 02/10/25 09:40 Blood Pressure 127/96 H 02/10/25 09:40 Pulse Oximetry 100 02/10/25 09:40 Oxygen Delivery Room Air 02/10/25 09:40 Temperature 36.5 C 02/10/25 09:40 Pulse Rate 89 02/10/25 12:12 Respiratory Rate 16 02/10/25 12:12 Blood Pressure 117/82 02/10/25 12:12 Pulse Oximetry 99 02/10/25 12:12 Oxygen Delivery Room Air 02/10/25 09:40 MDM - Abdominal Pain MDM Narrative Medical decision making narrative: 44-year-old male presenting to the emergency room with left-sided lower quadrant and flank pain. Family history of kidney stones but no personal history. Reported nausea and vomiting, no diarrhea, chest pain, shortness a breath, midline back pain. No chronic comorbidities or medications he takes. Vital signs reassuring without any hypertension, tachycardia, fever or hypoxia. Soft nontender nondistended abdomen. No urinary complaints. Concern presently is for potential nephrolithiasis, ureterolithiasis, obstructing kidney stone, urinary tract infection, pyelonephritis, diverticulitis, other intra-abdominal process less likely such as perforation, obstruction. Patient was given a mg of Dilaudid and 4 mg of Zofran as well as a fluid bolus. IV was established, CBC, CMP and urinalysis ordered. CT without contrast of the abdomen pelvis with kidney stone protocol obtained. Workup shows no leukocytosis or anemia. Normal platelet count. Electrolytes are unremarkable. Normal renal function, normal LFTs and glucose. Urinalysis shows no signs of active infection. CT scan shows 2 mm stone at the left UVJ with some mild left hydroureteronephrosis. Multiple nonobstructing bilateral stones. patient had initial mild improvement after dilaudid but still in pain. After Toradol he felt significantly improved and provided left-sided and Flomax. Given his adequate pain control and reassuring workup he can be safely discharged with Urology follow-up and pain medications prescribed to him. He was given home medications include oxycodone, Zofran, Levsin, Flomax and given strict return precautions which he and his family verbalized understanding prior to safe discharge at this time. Medical Records Attestation: I reviewed the patient's medical records. Lab Data Attestation: I reviewed the patient's lab results. 02/10/25 10:10 02/10/25 10:10 Labs: Lab Results 02/10/25 02/10/25 Range/Units 10:10 12:57 WBC 6.8 (4.5-10.0) K/mm3 RBC 4.77 (4.6-6.20) M/mm3 Hgb 14.3 (14.0-18.0) g/dL Hct 42.9 (42.0-52.0) % MCV 89.9 (80-100) fl MCH 30.0 (26-34) pg MCHC 33.3 (32-36) g/dl RDW 12.5 (11.5-14.5) % Plt Count 203 (150-375) k/mm3 MPV 10.0 (7.4-10.4) fl Immature Gran % (Auto) 0.4 (0-0.5) % Neut % (Auto) 76.7 H (45.5-73.1) % Lymph % (Auto) 14.6 L (18.3-44.2) % [place] % (Auto) 7.3 (2.6-8.5) % Eos % (Auto) 0.6 (0-4.4) % Baso % (Auto) 0.4 (0.2-1.2) % Lymph # (Auto) 1.00 (0.9-3.2) K/mm3 [place] # (Auto) 0.5 (0.1-0.6) K/mm3 Eos # (Auto) 0.0 (0-0.3) K/mm3 Baso # (Auto) 0.0 (0.0-0.1) K/mm3 Abs Immat Gran (auto) 0.03 (0.00-0.031) K/mm3 Absolute Neuts (auto) 5.2 (1.3-6.7) K/mm3 Absolute Nucleated RBC 0.000 (0.0-0.012) K/mm3 Nucleated RBC % 0.0 (0.0-0.2) % Sodium 139 (137-145) mmol/L Potassium 4.5 (3.4-5.0) mmol/L Chloride 104 (98-107) mmol/L Carbon Dioxide 27 (22-30) mmol/L Anion Gap 8 (4-12) mmol/L BUN 17 (9-20) mg/dL Creatinine 1.14 (0.7-1.3) mg/dL Estim Creat Clear Calc 82 ml/min Estimated GFR > 60 (59 - ) Glucose 90 (65-110) mg/dL Calcium 9.3 (8.4-10.2) mg/dL Total Bilirubin 0.9 (0.2-1.3) mg/dL AST 29 (17-59) U/L ALT 19 (6-50) U/L Alkaline Phosphatase 61 (38-126) U/L Total Protein 8.0 (6.3-8.2) g/dL Albumin 4.7 (3.5-5.1) g/dL Urine Color Yellow (Yellow) Urine Appearance Clear (Clear) Urine pH 6.5 (5.0-9.0) Ur Specific [place] 1.018 (1.001-1.035) Urine Protein Negative (Negative) mg/dL Urine Glucose (UA) Negative (Negative) mg/dL Urine Ketones Negative (Negative) mg/dL Ur Blood (Man) 1+ H (Negative) Urine Nitrate Negative (Negative) Urine Bilirubin Negative (Negative) Urine Urobilinogen 1.0 (<2.0) mg/dL Leukocyte Esterase Rfl Negative (Negative) CANDIDO/UL Urine RBC 6-10 H (0-2) /hpf Urine WBC 0-5 (0-3) /hpf Ur Squamous Epith Cells None seen (Few) /hpf Urine Bacteria None seen /hpf Urine Casts 0-2 Imaging Data Attestation: I personally reviewed and interpreted this imaging study as follows: My impression: Impressions Abdomen/Pelvis CT 02/10/25 11:11 Impression: 2 mm stone at the left UVJ versus just within the urinary bladder. Associated mild left hydroureteronephrosis. Multiple additional bilateral nonobstructing renal stones, as detailed above. Radiologist's impression: ITS Impressions Abdomen/Pelvis CT 02/10/25 11:11 Impression: 2 mm stone at the left UVJ versus just within the urinary bladder. Associated mild left hydroureteronephrosis. Multiple additional bilateral nonobstructing renal stones, as detailed above. Discharge Plan Discharge Clinical Impression: Kidney stone on left side, Renal colic Patient Disposition: Home Condition: Stable Instructions: Antibiotic Form, Kidney Stones (ED), How to Strain Your Urine (ED), Flank Pain (ED) Additional Instructions: You have a 2 mm stone in the left side which is most of the way down the urinary tract. No signs of kidney injury or urinary infection. We will send you home with a combination medications to control the symptoms which will help get her through the next few days until you passed the stone. If you experience any worsening pain, new symptoms such as intractable nausea vomiting, inability urinate please return to the emergency department otherwise follow-up with your regular doctor and the provided urologist. Patient Language: Icelandic Prescriptions: New ketorolac 10 mg tablet 10 mg PO Q8H PRN (Reason: pain) 5 Days Qty: 20 0RF Rx Instructions: maximum total duration of 5 days from all oral, intranasal, or parenteral formulations ondansetron 4 mg tablet,disintegrating 4 mg PO Q8H PRN (Reason: nausea and vomiting) Qty: 10 0RF oxycodone 5 mg tablet 5 mg PO Q8H PRN (Reason: pain) Qty: 10 0RF tamsulosin [Flomax] 0.4 mg capsule 0.4 mg PO DAILY Qty: 20 0RF hyoscyamine sulfate [Levsin] 0.125 mg tablet 0.125 mg PO Q6H PRN (Reason: flank pain) Qty: 8 0RF No Action trazodone 50 mg tablet omeprazole 40 mg capsule,delayed release(DR/EC) metformin 500 mg tablet extended release 24 hr PO rosuvastatin 10 mg tablet febuxostat 80 mg tablet Jardiance 10 mg tablet amoxicillin-pot clavulanate [Augmentin] 875-125 mg tablet 1 tablet PO Q12H 7 Days Qty: 14 0RF methylprednisolone [Methylpred DP] 4 mg tablets,dose pack 4 mg PO DAILY Qty: 21 0RF fluticasone propionate [Flonase Allergy Relief] 50 mcg/actuation spray,suspension 1 spray intranasal BID 7 Days Qty: 16 0RF Rx Instructions: administer into each nostril codeine-guaifenesin 10-100 mg/5 mL liquid 10 ml PO Q6H PRN (Reason: cough) Qty: 120 0RF prednisone 50 mg tablet 50 mg PO DAILY 5 Days Qty: 5 0RF Follow-up/Referrals: Marcelino Eugene MD [Physician] - 1 Week (Left-sided kidney stone UVJ) Nani,MENDY Mehta [Primary Care Provider] - Stand Alone Forms: Work/School Release IP Time of Disposition: 13:43
[2025-02-10] MEDS: HYDROmorphone HCL INJ (*CRX) 2 MG/ML VIAL 1 MG IV PUSH (10:55)
[2025-02-10] MEDS: LACTATED RINGERS 1,000 ML 999 ML IV CONT (10:55)
[2025-02-10] MEDS: ONDANSETRON INJ 4 MG/2 ML VIAL IV PUSH (10:55)
[2025-02-10 11:00] VITALS: BP 121/92; PULSE 89; RESP 17; O2SAT 100
--- OUTSIDE RECORDS SUMMARY | 2025-02-10 11:11 | XMS_ITS | Clinical Summary ---
Author Organization [facility] Address [address] [place] [address] Care Team Providers Care 911 Emergency Dispatcher Name Role Phone Dorothea Mclean PUMPER GAUGER APPRENTICE-FLIGHT CONTROL TOWER OPERATOR Primary Care Prov ider Unavailable Source Comments [facility],non-owned Affiliates and Associated Physician Practices is amultiple site organization consisting of ambulatory clinics and hospital sitesin [place], [place], [place] and [place]. This disclosure is being madepursuant to the Care Everywhere program and may not contain all information available regarding this patient. Last updated 18.[facility] Allergies No known active allergies Medications * [...] on file Legal Sex Male 7:33 AM COMPUTER LAB ASSISTANT Gender Identity Not on file Sexual Orientation Not on file Last Filed Vital Signs Vital Sign Reading Time Taken Comments Blood Pressure 115/79 09/19/2020 1:53 PM COMPUTER LAB ASSISTANT Pulse 88 09/19/2020 1:53 PM COMPUTER LAB ASSISTANT Temperature 36.6 C (97.9 F) 09/19/2020 1:53 PM COMPUTER LAB ASSISTANT Respiratory Rate 12 09/19/2020 1:53 PM COMPUTER LAB ASSISTANT Oxygen Saturation 99% 09/19/2020 1:53 PM COMPUTER LAB ASSISTANT Inhaled Oxygen Concentration - - Weight 117 kg (258 lb) 09/19/2020 1:53 PM COMPUTER LAB ASSISTANT Height 185.4 cm (6' 1 ) 09/19/2020 1:53 PM COMPUTER LAB ASSISTANT Body Mass Index 34.04 09/19/2020 1:53 PM COMPUTER LAB ASSISTANT Plan of Treatment Health Maintenance Due Date [...] Management General On track( 020 1:53 PM COMPUTER LAB ASSISTANT) Brady Blackmon, RN Note: Expected end date: Interventions: Take all medications as prescribed Let your doctor know right away about any changes in your medications Make sure to request a refill of your medication at least one week prior to your last dose Care Teams 911 Emergency Dispatcher Relationship Specialty Start Date End Date Dorothea Mclean, PUMPER GAUGER APPRENTICE-FLIGHT CONTROL TOWER OPERATOR PCP - General Nurse Practitioner 12/31/19
--- OUTSIDE RECORDS SUMMARY | 2025-02-10 11:11 | XMS_ITS | Referral Summary ---
Author Organization [facility] [address] [facility] Address [address] [place] [phone] Care Team Providers Care Puppet Master Name Role Phone aJnine Cardoza Primary Care Provider +1- [phone] Encounters Date Type Department Care Team Description 11/19/2024 Orders Only [facility] Medical [facility] Family Medicine [address] [place] [address] [place] [phone] Provider, MD Kayla 11/18/2024 3:30 PM PLANT QUALITY MANAGER Office Visit [address] [place] [phone] Janine Cardoza PA Annual physical exam [...] 11/29/2024 Assessment & Plan (11/29/2024 5:22 PM PLANT QUALITY MANAGER): Flu vaccine updated in the office today Annual physical exam 11/29/2024 Assessment & Plan (11/29/2024 5:22 PM PLANT QUALITY MANAGER): Encouraged healthy lifestyle, good nutrition and exercise. Encouraged Calcium and Vitamin D and weight bearing exercise for bone health. Reviewed immunizations Reviewed age appropirate screenings. BMI 27.0-27.9,adult 08/11/2024 Assessment & Plan (11/29/2024 5:21 PM PLANT QUALITY MANAGER): Weight/BMI is in healthy range. Continue healthy lifestyle to maintain. Assessment & Plan (09/14/2024 3:44 PM PLANT QUALITY MANAGER): Discussed the patient's BMI. The BMI is above average. BMI management plan is completed. BMI Follow-up includes: nutrition counseling, exercise counseling and education provided. Assessment & Plan (08/11/2024 1:41 PM PLANT QUALITY MANAGER): Weight/BMI is in healthy range. Continue healthy lifestyle to maintain. Moderate episode of recurrent major depressive d isorder 08/11/2024 Assessment & Plan (11/29/2024 5:22 PM PLANT QUALITY MANAGER): Continue Wellbutrin XL 150, trazodone 150 for sleep and Lexapro 20 Assessment & Plan (09/26/2024 1:34 PM PLANT QUALITY MANAGER): Depression symptoms are still present. He is under a lot of stress as he is currently going through a divorce and juggling children as well as work. Continue Wellbutrin XL 150. Increase the Lexapro to 20 mg. Follow-up 6-8 weeks to reassess or sooner for any other problems or concerns. Strongly encouraged continued counseling Assessment & Plan (09/13/2024 12:45 AM PLANT QUALITY MANAGER): Patient is under lot of stress, depression. [...] concerns Assessment & Plan (08/12/2024 12:17 AM PLANT QUALITY MANAGER): Discussed depression at length. Currently no suicidal [...] (HSV) Assessment & Plan (11/29/2024 5:22 PM PLANT QUALITY MANAGER): Continue Valtrex daily for suppression Assessment & Plan (09/26/2024 1:34 PM PLANT QUALITY MANAGER): Continue Valtrex p.r.n. Assessment & Plan (09/13/2024 12:46 AM PLANT QUALITY MANAGER): Continue Valtrex for prevention Assessment & Plan (08/12/2024 12:16 AM PLANT QUALITY MANAGER): Exposure to HSV through his current partner. [...] 05/24/2022 Assessment & Plan (11/29/2024 5:22 PM PLANT QUALITY MANAGER): Stressed importance of continued A1c control to minimize the laborer marine terminal effects of diabetes. Bring accuchecks to office when instructed to do so. Check A1c about every 3-6 months. Take medication as prescribed. Get annual eye exam. Encouraged LLOYD/Statin if able to tolerate. Encouraged weight control and encouraged diabetic diet and exercise. Assessment & Plan (09/26/2024 1:34 PM PLANT QUALITY MANAGER): Stressed importance of continued A1c control to minimize the laborer marine terminal effects of diabetes. Bring accuchecks to office [...] visit. Assessment & Plan (09/13/2024 12:45 AM PLANT QUALITY MANAGER): Stressed importance of continued A1c control to minimize the mcfp effects of diabetes. Bring accuchecks to office when instructed to do so. Check A1c about every 3-6 months. Take medication as prescribed. Get annual eye exam. Encouraged LLOYD/Statin if able to tolerate. Encouraged weight control and encouraged diabetic diet and exercise. Continue Mounjaro 15. A1c is tightly controlled. Assessment & Plan (08/12/2024 12:15 AM PLANT QUALITY MANAGER): Stressed importance of continued A1c control to minimize the laborer marine terminal effects of diabetes. Bring accuchecks to office [...] of continued A1c control to minimize the laborer marine terminal effects of diabetes. Bring accuchecks to office when instructed to do so. Check A1c about every 3-6 months. Take medication as prescribed. Get annual eye exam. Encouraged LLOYD/Statin if able to tolerate. Encouraged weight control and encouraged diabetic diet and exercise. Continue Ozempic 2 mg Assessment & Plan (12/15/2023 10:48 PM CDT): Stressed importance of continued A1c control to minimize the laborer marine terminal effects of diabetes. Bring accuchecks to office [...] of continued A1c control to minimize the laborer marine terminal effects of diabetes. Bring accuchecks to office [...] transitioned to much RO. Will stop the [id number] transitioned to majora 5 and continue to increase as tolerated. Assessment & Plan (12/16/2022 6:26 PM CDT): Stressed importance of continued A1c control to minimize the laborer marine terminal effects of diabetes. Bring accuchecks to office [...] of continued A1c control to minimize the mcfp effects of diabetes. Bring accuchecks to office [...] 10/2020 Assessment & Plan (11/13/2020 6:16 PM PLANT QUALITY MANAGER): Continue to monitor. If sxs reoccur he is to call. His 10 days quarrantine has completed. Erectile dysfunction associa jamaal with type 2 diabetes mellitus 10/15/2019 Assessment & Plan (04/12/2024 6:59 PM CDT): Continue Viagra p.r.n. Assessment & Plan (06/29/2020 1:37 PM CDT): monitor Assessment & Plan (11/07/2019 11:02 AM PLANT QUALITY MANAGER): Stressed importance of continued A1c control to minimize the mcfp effects of diabetes. Bring accuchecks to office [...] pharmacy Assessment & Plan (08/25/2021 7:24 PM PLANT QUALITY MANAGER): Uloric is tolerated well. His uric acid level is 2.7 so suspect that his right toe pain may not be gout related. Will check an x-ray. Assessment & Plan (11/13/2020 6:19 PM PLANT QUALITY MANAGER): Continue with uloric Assessment & Plan (06/29/2020 1:37 PM CDT): Uric acid level is tightly controlled with the Uloric. Continue to monitor diet Assessment & Plan (11/07/2019 11:02 AM PLANT QUALITY MANAGER): Continue Uloric Monitor diet Primary insomnia 10/15/2019 Assessment & Plan (09/26/2024 1:32 PM PLANT QUALITY MANAGER): Patient continues to have difficulty sleeping. Probably [...] pharmacy Assessment & Plan (08/25/2021 7:27 PM PLANT QUALITY MANAGER): This is a significant, separately identifiable problem [...] assistance Assessment & Plan (11/07/2019 11:04 AM PLANT QUALITY MANAGER): Discussed treatment options. Encouraged good sleep hygeine -- will continue to monitor. Type 2 diabetes mellitus with hyperlipidemia 06/2020 Assessment & Plan (11/29/2024 5:21 PM PLANT QUALITY MANAGER): Stressed importance of continued A1c control to minimize the mcfp effects of diabetes. Bring accuchecks to office [...] loss. Assessment & Plan (09/26/2024 1:33 PM PLANT QUALITY MANAGER): Stressed importance of continued A1c control to minimize the mcfp effects of diabetes. Bring accuchecks to office [...] of continued A1c control to minimize the mcfp effects of diabetes. Bring accuchecks to office [...] transitioned to much RO. Will stop the [id number] transitioned to majora 5 and continue to increase as tolerated. Assessment & Plan (12/16/2022 6:25 PM CDT): Encouraged patient to follow low fat/low chol diet like the Mediterranean diet. Increase good fats in the diet. Increase exercise. Monitor labs as needed. Continue Crestor 10 Assessment & Plan (05/26/2022 1:38 PM CDT): Stressed importance of continued A1c control to minimize the laborer marine terminal effects of diabetes. Bring accuchecks to office [...] monitor Assessment & Plan (08/25/2021 7:24 PM PLANT QUALITY MANAGER): Encouraged patient to follow fat/low chol diet like the Mediterranean diet. Increase good fats in the diet. Increase exercise. Monitor labs as needed. Continue Crestor Assessment & Plan (11/13/2020 6:18 PM PLANT QUALITY MANAGER): Encouraged patient to follow fat/low chol diet [...] done. Assessment & Plan (11/07/2019 11:05 AM PLANT QUALITY MANAGER): This is a significant, separately identifiable problem [...] p.r.n. Assessment & Plan (08/25/2021 7:24 PM PLANT QUALITY MANAGER): Continue omeprazole. Will change to 40 mg tablets 1 daily. Assessment & Plan (06/29/2020 1:34 PM CDT): Continue PPI Assessment & Plan (11/07/2019 11:01 AM PLANT QUALITY MANAGER): Currently stable without medication Elevated liver enzymes 10/15/2019 Assessment & Plan (12/15/2023 10:45 PM CDT): Continue to monitor. May consider liver ultrasound to rule out fatty liver. Assessment & Plan (06/29/2020 1:41 PM CDT): Continue per Dr. Fraga. Await workup completion to determine start of statin Assessment & Plan (11/07/2019 11:05 AM PLANT QUALITY MANAGER): This is a significant, separately identifiable problem [...] 09/13/2024 Assessment & Plan (08/12/2024 12:19 AM PLANT QUALITY MANAGER): Patient has had a persistent cough for almost 10 days. He did a negative COVID at home. Is becoming productive with some discoloration. Will send out Augmentin 875 b.i.d. times 10 days. Will send Tessalon Perles for the cough. Continue with etks-irj-gewmabe cough medicines as needed. If symptoms worsen or do not improve he is to follow up immediately. Screening examination for ST D (sexually transmitted disease) 08/11/2024 09/13/2024 Assessment & Plan (08/12/2024 12:17 AM PLANT QUALITY MANAGER): Will check STD screening including HIV hepatitis [...] 05/30/20 Assessment & Plan (11/26/2022 4:10 PM PLANT QUALITY MANAGER): Discussed the patient's BMI. The BMI is [...] 01/19/20 Assessment & Plan (08/25/2021 10:00 AM PLANT QUALITY MANAGER): Obesity is unchanged. Discussed the patient's BMI. [...] provided. Assessment & Plan (08/25/2021 10:00 AM PLANT QUALITY MANAGER): Obesity is unchanged. Discussed the patient's BMI. The BMI is above average. BMI management plan is completed. BMI Follow-up includes: nutrition counseling, exercise counseling and education provided. Chronic toe pain, right foot 08/25/2021 09/26/2024 Assessment & Plan (08/25/2021 7:26 PM PLANT QUALITY MANAGER): This is a significant, separately identifiable problem [...] re-evaluate Assessment & Plan (08/25/2021 7:26 PM PLANT QUALITY MANAGER): Probably multifactorial. Check labs and followup to re-evaluate Chronic nasal congestion 10/16/2020 Assessment & Plan (10/16/2020 9:41 AM PLANT QUALITY MANAGER): Patient to presume positive COVID until results are available and self isolate for 14 days from the onset of sxs. Check COVID test thru [facility] collection site in [place]. Treat sxs with Tylenol, Cough/cold medication otc [...] water often. If needed, use a hand mid teacher that contains at least 60% alcohol. Clean [...] 12/16/2022 Assessment & Plan (08/25/2021 7:25 PM PLANT QUALITY MANAGER): Flu vaccine updated Assessment & Plan (06/29/2020 1:41 PM CDT): Updated in office today Other fatigue 11/07/2019 08/25/2021 Assessment & Plan (11/07/2019 11:06 AM PLANT QUALITY MANAGER): Probably multifactorial. Check labs and followup to re-evaluate BMI 37.0-37.9, adult 10/19/2019 020 Assessment & Plan (10/19/2019 3:56 PM PLANT QUALITY MANAGER): Obesity is unchanged. Discussed the patient's BMI. [...] provided. Assessment & Plan (10/19/2019 3:56 PM PLANT QUALITY MANAGER): Obesity is unchanged. Discussed the patient's BMI. [...] screenings. Assessment & Plan (08/25/2021 7:25 PM PLANT QUALITY MANAGER): Encouraged healthy lifestyle, good nutrition and exercise. Encouraged Calcium and Vitamin D and weight bearing exercise for bone health. Reviewed immunizations Reviewed age appropirate screenings. Assessment & Plan (06/29/2020 1:37 PM CDT): Encouraged healthy lifestyle, good nutrition and exercise. Encouraged Calcium and Vitamin D and weight bearing exercise for bone health. Reviewed immunizations Reviewed age appropirate screenings. Assessment & Plan (11/07/2019 11:03 AM PLANT QUALITY MANAGER): Encouraged healthy lifestyle, good nutrition and exercise. Encouraged Calcium and Vitamin D and weight bearing exercise for bone health. Reviewed immunizations Reviewed age appropirate screenings. Controlled type 2 diabetes kale [place], without long-term current use of insulin 10/15/2019 022 Assessment & Plan (01/20/2022 10:51 PM CDT): Stressed importance of continued A1c control to minimize the mcfp effects of diabetes. Bring accuchecks to office [...] pancreatitis. Assessment & Plan (08/25/2021 7:26 PM PLANT QUALITY MANAGER): Stressed importance of continued A1c control to minimize the laborer marine terminal effects of diabetes. Bring accuchecks to office [...] of continued A1c control to minimize the laborer marine terminal effects of diabetes. Bring accuchecks to office when instructed to do so. Check A1c about every 3-6 months. Take medication as prescribed. Get annual eye exam. Encouraged LLOYD/Statin if able to tolerate. Encouraged weight control and encouraged diabetic diet and exercise. Continue Invokana and metformin. He will check with his insurance regarding preferred SGLT. Assessment & Plan (11/07/2019 11:05 AM PLANT QUALITY MANAGER): This is a significant, separately identifiable problem that was evaluated and managed on the same day as the wellness exam Stressed importance of continued A1c control to minimize the mcfp effects of diabetes. Bring accuchecks to office [...] on file Legal Sex Male 10:06 AM PLANT QUALITY MANAGER Gender Identity Male 10/12/2020 3:47 PM PLANT QUALITY MANAGER Sexual Orientation Straight 10/12/2020 3: 47 PM PLANT QUALITY MANAGER Last Filed Vital Signs Vital Sign Reading Time Taken Comments Blood Pressure 106/64 11/18/2024 3:11 PM PLANT QUALITY MANAGER Pulse 73 11/18/2024 3:11 PM PLANT QUALITY MANAGER Temperature 36.9 C (98.4 F) 11/18/2024 3:11 PM PLANT QUALITY MANAGER Respiratory Rate 18 05/24/2022 3:06 PM CDT Oxygen Saturation 99% 11/18/2024 3:11 PM PLANT QUALITY MANAGER Inhaled Oxygen Concentration - - Weight 93.2 kg (205 lb 6.4 oz) 11/18/2024 3:11 P M PLANT QUALITY MANAGER Height 182.9 cm (6') 09/14/2024 3:43 PM PLANT QUALITY MANAGER Body Mass Index 27.86 09/14/2024 3:43 PM PLANT QUALITY MANAGER Plan of Treatment Not on file Procedures Procedure Name Priority Date/Time Associated Diagnosis Comments DIABETES EYE EXAM Routine 11/19/2024 2:45 PM PLANT QUALITY MANAGER COMPREHENSIVE METABOLIC PANEL Routine 11/12/2024 3:08 PM PLANT QUALITY MANAGER Type 2 diabetes mellitus without complication, without long-term current use of insulin (HCC) HEMOGLOBIN A1C Routine 11/12/2024 3:08 PM PLANT QUALITY MANAGER Type 2 diabetes mellitus without complication, without long-term current use of insulin (HCC) LIPID PANEL Routine 11/12/2024 3:08 PM PLANT QUALITY MANAGER Type 2 diabetes mellitus without complication, without long-term current use of insulin (HCC) ALBUMIN CREATININE RATIO, URINE Routine 11/12/2024 3:08 PM PLANT QUALITY MANAGER Type 2 diabetes mellitus without complication, without long-term current use of insulin (HCC) HEPATITIS PANEL, ACUTE Routine 4 3:17 PM PLANT QUALITY MANAGER Screening examination for STD (sexually transmitted disease) from Last 3 Months or Most Recently Relevant to Health Maintenance Results * DIABETES EYE EXAM (11/19/2024 2:45 PM PLANT QUALITY MANAGER) SCRIBED DIABETIC DILATED EYE EXAM Abnormal Comment:myopic astigmatism us Historical Provider HEALTH MAINTENANCE Edited Result - Final * Albumin Creatinine Ratio, Urine (11/12/2024 3:08 PM PLANT QUALITY MANAGER) Creatinine, ur 87 20 - 320 mg/dL [...] a diagnostic category. Urine 11/12/2024 3:08 PM PLANT QUALITY MANAGER 11/12/2024 3:09 PM PLANT QUALITY MANAGER Narrative [facility] - 11/13/2024 5:11 AM PLANT QUALITY MANAGER FASTING:YES FASTING: YES Janine BROOKE LAB URINE ORDERABLES Final Result Performing Organization Address City/[facility]/ZIP Co de Phone Number [facility] [address] [place] [address] * Hemoglobin A1c (11/12/2024 3:08 PM PLANT QUALITY MANAGER) Hgb A1C 4.6 <5.7 % of total Hgb [facility] Comment: For the purpose of screening for the presence of diabetes: <5.7% Consistent with the absence of diabetes 5.7-6.4% Consistent with increased risk for diabetes (prediabetes) > or =6.5% Consistent with diabetes This assay result is consistent with a decreased risk of diabetes. Currently, no consensus exists regarding use of hemoglobin A1c for diagnosis of diabetes in children. According to [place] Diabetes Association (ADA) guidelines, hemoglobin A1c <7.0% represents optimal control in non- diabetic patients. Different metrics may apply to specific patient populations. Standards of Medical Care in Diabetes(ADA). Blood 11/12/2024 3:08 PM PLANT QUALITY MANAGER 11/12/2024 3:09 PM PLANT QUALITY MANAGER Narrative [facility] - 11/13/2024 5:11 AM PLANT QUALITY MANAGER FASTING:YES FASTING: YES Janine BROOKE LAB BLOOD ORDERABLES Final Result [facility] [address] [place] [address] * (ABNORMAL) Lipid panel (11/12/2024 3:08 PM PLANT QUALITY MANAGER) Cholesterol 174 <200 mg/dL [facility] [...] LDL-C. Adrian MARIO et al. REJI. 2013;310(19): 9665-6560 (http://education.PayAllies/faq/XSA481) Chol/HDL ratio 4.0 <5.0 (calc) Marvin Carter Non-HDL, (LDL+VLDL) 130(H) <130 mg/dL (calc) Marvin Carter Comment: For patients with diabetes plus 1 major ASCVD risk factor, treating to a non-HDL-C goal of <100 mg/dL (LDL-C of <70 mg/dL) is considered a therapeutic option. Blood 11/12/2024 3:08 PM PLANT QUALITY MANAGER 11/12/2024 3:09 PM PLANT QUALITY MANAGER Narrative [facility] - 11/13/2024 5:11 AM PLANT QUALITY MANAGER FASTING:YES FASTING: YES Janine BROOKE LAB BLOOD ORDERABLES Final Result MARVIN Carter [address] [place] [address] * Comprehensive metabolic panel (11/12/2024 3:08 PM PLANT QUALITY MANAGER) [facility] Glucose 82 65 - 99 mg/dL Marvin Carter Comment: Fasting reference interval BUN 12 7 - 25 mg/dL Marvin Carter Creatinine 0.93 0.60 - 1.29 mg/dL Marvin Carter eGFR 104 > OR = 60 mL/min/1.7 3m2 Marvin Carter BUN/creat ratio SEE NOTE: (calc) Marvin Carter Comment: Not Reported: BUN and Creatinine are within reference range. Sodium 141 135 - 146 mmol/L [facility]unch-S tiffany Carter Potassium, pl 4.1 3.5 - 5.3 mmol/L [facility] Chloride 104 98 - 110 mmol/L Marvin [...] ratio 2.0 1.0 - 2.5 (calc) [facility] Bunch-S tiffany Carter Bilirubin, total 1.0 0.2 - 1.2 mg/dL [facility]-Yolanda Carter Alk phos 55 36 - 130 U/L [facility]unch-Yolanda Carter AST 16 10 - 40 U/L [facility] Carter ALT (SGPT) 10 9 - 46 U/L [facility] Carter Blood 11/12/2024 3:08 PM PLANT QUALITY MANAGER 11/12/2024 3:09 PM PLANT QUALITY MANAGER Narrative [facility] - 11/13/2024 5:11 AM PLANT QUALITY MANAGER FASTING:YES FASTING: YES us Janine BROOKE LAB BLOOD ORDERABLES Final Result [facility] [address] [place] [address] * Hepatitis panel, acute Blood (08/27/2024 3:17 PM PLANT QUALITY MANAGER) Hep A IgM NON-REACTI VE NON-REACT LINDY [email or web address] Comment: For additional information, please refer to http://Revizer.Wireless Generation/faq/IEA913 (This link is being provided for informational/ educational purposes only.) HepBsAg NON-REACTI VE NON-REACT LINDY [facility] Comment: For additional information, please refer to http://Revizer.Wireless Generation/faq/KBT957 (This link is being provided for informational/ educational purposes only.) Hep B core IgM NON-REACTI VE NON-REACT LINDY [facility] Comment: For additional information, please refer to http://[employer]/faq/TTJ377 (This link is being provided for informational/ educational purposes only.) Hep C Ab NON-REACTI VE NON-REACT LINDY [facility] Comment: HCV antibody was non-reactive. There is no laboratory evidence of HCV infection. In most cases, no further action is required. However, if recent HCV exposure is suspected, a test for HCV RNA (test code 32784) is suggested. For additional information please refer to http://[employer]/faq/PNC55c3 (This link is being provided for informational/ educational purposes only.) Blood 08/27/2024 3:17 PM PLANT QUALITY MANAGER 08/27/2024 3:17 PM PLANT QUALITY MANAGER Janine BROOKE LAB MICROBIOLOGY - GENERAL ORDERABLES Final Result [facility] [address] [place] [address] from Last 3 Months or Most Recently Relevant to Health Maintenance Insurance [facility] Care Teams Puppet Master Relationship Specialty Start Date End Date Janine Cardoza PA [address] [facility] [address] [place], [place] [id number] PCP - General Internal Medicine 08/10/19
--- OUTSIDE RECORDS SUMMARY | 2025-02-10 11:11 | XMS_ITS | Clinical Summary ---
Author Organization [facility] Address [address], [address] [address] Phone Care Team Providers Care Lead Press Operator Name Role Phone Janine Cardoza PAC Primary Care Provider [phone]- [phone] Allergies No known active allergies Medications metFORMIN (GLUCOPHAGE-XR) 500 MG TABLET SR 24 HR 2 times daily. 11/11/2019 Active INVOKANA 100 MG Tablet every morning. 10/23/2019 Active febuxostat (ULORIC) 80 MG Tablet every morning. 11/11/2019 Active Multiple Vitamin (MULTI-VITAMIN PO) Take by mouth every morning. Active [place]-3 Fatty Acids (FISH OIL PO) Take by [...] Comments Blood Pressure 113/77 12/02/2019 9:07 AM MATZO FORMING MACHINE OPERATOR Pulse 76 12/02/2019 9:07 AM MATZO FORMING MACHINE OPERATOR Temperature 36 C (96.8 F) 12/02/2019 9:07 AM MATZO FORMING MACHINE OPERATOR Respiratory Rate 21 12/02/2019 9:07 AM MATZO FORMING MACHINE OPERATOR Oxygen Saturation 98% 12/02/2019 9:07 AM MATZO FORMING MACHINE OPERATOR Inhaled Oxygen Concentration - - Weight 122.5 kg (270 lb) 11/20/2019 9:14 AM MATZO FORMING MACHINE OPERATOR Height 182.9 cm (6') 11/20/2019 9:14 AM MATZO FORMING MACHINE OPERATOR Body Mass Index 36.62 11/20/2019 9:14 AM MATZO FORMING MACHINE OPERATOR Plan of Treatment Health Maintenance Due Date [...] Date/Time Associated Diagnosis Comments HCV GENOTYPE SERUM, STEBBINS HCVG Routine 11/20/2019 9:58 AM MATZO FORMING MACHINE OPERATOR Elevated LFTs from Last 3 Months or Most Recently Relevant to Health Maintenance Results * HCV GENOTYPE SERUM, STEBBINS HCVG (11/20/2019 9:58 AM MATZO FORMING MACHINE OPERATOR) HEPATITIS C GENOTYPING Undetected Undetected 11/24/2019 7:57 AM MATZO FORMING MACHINE OPERATOR [facility] Comment: Assay failed to detect HCV RNA. This assay is not intended for HCV RNA detection purposes. ADDITIONAL INFORMATION This test was performed using the Barreto RealTime HCV Genotype II assay ([employer] [place], [place]). Test Performed by: [facility] [address] [place] [address] Scientist Engineer: Asael Hancock M.D. Ph.D.; CLIA# [id number] Blood specimen (specimen) Venipuncture / Unknown 11/20/2019 9:58 AM MATZO FORMING MACHINE OPERATOR 11/20/2019 9:58 AM MATZO FORMING MACHINE OPERATOR us Dorothea Mclean OIL FURNACE INSTALLER, GRAIN MIXER LAB SEND OUTS F inal Result [facility] [address] [place] [address], [place] from Last 3 Months or Most Recently Relevant to Health Maintenance Insurance [facility] Care Teams Lead Press Operator Relationship Specialty Start Date End Date Janine Cardoza, JOSEPH PCP - General Physician Corporate Buyer 11/20/19
--- OUTSIDE RECORDS SUMMARY | 2025-02-10 11:11 | XMS_ITS | Clinical Summary ---
Author Organization [facility] Address [address] [place] [address] Care Team Providers Care [employer] Supervisor Name Role Phone Janine Cardoza Primary Care Provider [phone] Allergies No known active allergies Medications blood-glucose [...] 11/29/2024 Assessment & Plan (11/29/2024 5:22 PM PLASTIC SURGERY ASSISTANT): Flu vaccine updated in the office today Annual physical exam 11/29/2024 Assessment & Plan (11/29/2024 5:22 PM PLASTIC SURGERY ASSISTANT): Encouraged healthy lifestyle, good nutrition and exercise. Encouraged Calcium and Vitamin D and weight bearing exercise for bone health. Reviewed immunizations Reviewed age appropirate screenings. BMI 27.0-27.9,adult 08/11/2024 Assessment & Plan (11/29/2024 5:21 PM PLASTIC SURGERY ASSISTANT): Weight/BMI is in healthy range. Continue healthy lifestyle to maintain. Assessment & Plan (09/14/2024 3:44 PM PLASTIC SURGERY ASSISTANT): Discussed the patient's BMI. The BMI is above average. BMI management plan is completed. BMI Follow-up includes: nutrition counseling, exercise counseling and education provided. Assessment & Plan (08/11/2024 1:41 PM PLASTIC SURGERY ASSISTANT): Weight/BMI is in healthy range. Continue healthy lifestyle to maintain. Moderate episode of recurrent major depressive d isorder 08/11/2024 Assessment & Plan (11/29/2024 5:22 PM PLASTIC SURGERY ASSISTANT): Continue Wellbutrin XL 150, trazodone 150 for sleep and Lexapro 20 Assessment & Plan (09/26/2024 1:34 PM PLASTIC SURGERY ASSISTANT): Depression symptoms are still present. He is under a lot of stress as he is currently going through a divorce and juggling children as well as work. Continue Wellbutrin XL 150. Increase the Lexapro to 20 mg. Follow-up 6-8 weeks to reassess or sooner for any other problems or concerns. Strongly encouraged continued counseling Assessment & Plan (09/13/2024 12:45 AM PLASTIC SURGERY ASSISTANT): Patient is under lot of stress, depression. [...] concerns Assessment & Plan (08/12/2024 12:17 AM PLASTIC SURGERY ASSISTANT): Discussed depression at length. Currently no suicidal [...] (HSV) Assessment & Plan (11/29/2024 5:22 PM PLASTIC SURGERY ASSISTANT): Continue Valtrex daily for suppression Assessment & Plan (09/26/2024 1:34 PM PLASTIC SURGERY ASSISTANT): Continue Valtrex p.r.n. Assessment & Plan (09/13/2024 12:46 AM PLASTIC SURGERY ASSISTANT): Continue Valtrex for prevention Assessment & Plan (08/12/2024 12:16 AM PLASTIC SURGERY ASSISTANT): Exposure to HSV through his current partner. [...] 05/24/2022 Assessment & Plan (11/29/2024 5:22 PM PLASTIC SURGERY ASSISTANT): Stressed importance of continued A1c control to minimize the penitentiary effects of diabetes. Bring accuchecks to office when instructed to do so. Check A1c about every 3-6 months. Take medication as prescribed. Get annual eye exam. Encouraged LLOYD/Statin if able to tolerate. Encouraged weight control and encouraged diabetic diet and exercise. 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 Bring accuchecks to office [...] visit. Assessment & Plan (09/13/2024 12:45 AM PLASTIC SURGERY ASSISTANT): Stressed importance of continued A1c control to minimize the penitentiary effects of diabetes. Bring accuchecks to office when instructed to do so. Check A1c about every 3-6 months. Take medication as prescribed. Get annual eye exam. Encouraged LLOYD/Statin if able to tolerate. Encouraged weight control and encouraged diabetic diet and exercise. Continue Mounjaro 15. A1c is tightly controlled. 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 Bring accuchecks to office when instructed to do so. Check A1c about every 3-6 months. Take medication as prescribed. Get annual eye exam. Encouraged LLOYD/Statin if able to tolerate. Encouraged weight control and encouraged diabetic diet and exercise. 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 Bring accuchecks to office [...] of continued A1c control to minimize the penitentiary effects of diabetes. Bring accuchecks to office [...] transitioned to much RO. Will stop the [id number] transitioned to majora 5 and continue to increase as tolerated. 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 Bring accuchecks to office [...] of continued A1c control to minimize the penitentiary effects of diabetes. Bring accuchecks to office [...] 10/2020 Assessment & Plan (11/13/2020 6:16 PM PLASTIC SURGERY ASSISTANT): Continue to monitor. If sxs reoccur he is to call. His 10 days quarrantine has completed. Erectile dysfunction associa jamaal with type 2 diabetes mellitus 10/15/2019 Assessment & Plan (04/12/2024 6:59 PM CDT): Continue Viagra p.r.n. 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 Bring accuchecks to office [...] pharmacy Assessment & Plan (08/25/2021 7:24 PM PLASTIC SURGERY ASSISTANT): Uloric is tolerated well. His uric acid level is 2.7 so suspect that his right toe pain may not be gout related. Will check an x-ray. Assessment & Plan (11/13/2020 6:19 PM PLASTIC SURGERY ASSISTANT): Continue with uloric Assessment & Plan (06/29/2020 1:37 PM CDT): Uric acid level is tightly controlled with the Uloric. Continue to monitor diet Assessment & Plan (11/07/2019 11:02 AM PLASTIC SURGERY ASSISTANT): Continue Uloric Monitor diet Primary insomnia 10/15/2019 Assessment & Plan (09/26/2024 1:32 PM PLASTIC SURGERY ASSISTANT): Patient continues to have difficulty sleeping. Probably [...] pharmacy Assessment & Plan (08/25/2021 7:27 PM PLASTIC SURGERY ASSISTANT): This is a significant, separately identifiable problem [...] assistance Assessment & Plan (11/07/2019 11:04 AM PLASTIC SURGERY ASSISTANT): Discussed treatment options. Encouraged good sleep hygeine -- will continue to monitor. 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 Bring accuchecks to office [...] loss. Assessment & Plan (09/26/2024 1:33 PM PLASTIC SURGERY ASSISTANT): Stressed importance of continued A1c control to minimize the penitentiary effects of diabetes. Bring accuchecks to office [...] of continued A1c control to minimize the penitentiary effects of diabetes. Bring accuchecks to office [...] transitioned to much RO. Will stop the [id number] transitioned to majora 5 and continue to increase as tolerated. Assessment & Plan (12/16/2022 6:25 PM CDT): Encouraged patient to follow low fat/low chol diet like the Mediterranean diet. Increase good fats in the diet. Increase exercise. Monitor labs as needed. 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 Bring accuchecks to office [...] monitor Assessment & Plan (08/25/2021 7:24 PM PLASTIC SURGERY ASSISTANT): Encouraged patient to follow fat/low chol diet like the Mediterranean diet. Increase good fats in the diet. Increase exercise. Monitor labs as needed. Continue Crestor Assessment & Plan (11/13/2020 6:18 PM PLASTIC SURGERY ASSISTANT): Encouraged patient to follow fat/low chol diet [...] done. Assessment & Plan (11/07/2019 11:05 AM PLASTIC SURGERY ASSISTANT): This is a significant, separately identifiable problem [...] p.r.n. Assessment & Plan (08/25/2021 7:24 PM PLASTIC SURGERY ASSISTANT): Continue omeprazole. Will change to 40 mg tablets 1 daily. Assessment & Plan (06/29/2020 1:34 PM CDT): Continue PPI Assessment & Plan (11/07/2019 11:01 AM PLASTIC SURGERY ASSISTANT): Currently stable without medication Elevated liver enzymes 10/15/2019 Assessment & Plan (12/15/2023 10:45 PM CDT): Continue to monitor. May consider liver ultrasound to rule out fatty liver. Assessment & Plan (06/29/2020 1:41 PM CDT): Continue per Dr. Fraga. Await workup completion to determine start of statin Assessment & Plan (11/07/2019 11:05 AM PLASTIC SURGERY ASSISTANT): This is a significant, separately identifiable problem [...] 09/13/2024 Assessment & Plan (08/12/2024 12:19 AM PLASTIC SURGERY ASSISTANT): Patient has had a persistent cough for almost 10 days. He did a negative COVID at home. Is becoming productive with some discoloration. Will send out Augmentin 875 b.i.d. times 10 days. Will send Tessalon Perles for the cough. Continue with jjge-dfs-snfngji cough medicines as needed. If symptoms worsen or do not improve he is to follow up immediately. Screening examination for ST D (sexually transmitted disease) 08/11/2024 09/13/2024 Assessment & Plan (08/12/2024 12:17 AM PLASTIC SURGERY ASSISTANT): Will check STD screening including HIV hepatitis [...] 23 Assessment & Plan (11/26/2022 4:10 PM PLASTIC SURGERY ASSISTANT): Discussed the patient's BMI. The BMI is [...] 01/19/20 Assessment & Plan (08/25/2021 10:00 AM PLASTIC SURGERY ASSISTANT): Obesity is unchanged. Discussed the patient's BMI. [...] provided. Assessment & Plan (08/25/2021 10:00 AM PLASTIC SURGERY ASSISTANT): Obesity is unchanged. Discussed the patient's BMI. The BMI is above average. BMI management plan is completed. BMI Follow-up includes: nutrition counseling, exercise counseling and education provided. Chronic toe pain, right foot 08/25/2021 09/26/2024 Assessment & Plan (08/25/2021 7:26 PM PLASTIC SURGERY ASSISTANT): This is a significant, separately identifiable problem [...] re-evaluate Assessment & Plan (08/25/2021 7:26 PM PLASTIC SURGERY ASSISTANT): Probably multifactorial. Check labs and followup to re-evaluate Chronic nasal congestion 10/16/2020 Assessment & Plan (10/16/2020 9:41 AM PLASTIC SURGERY ASSISTANT): Patient to presume positive COVID until results are available and self isolate for 14 days from the onset of sxs. Check COVID test thru [facility] collection site in [place]. Treat sxs with Tylenol, Cough/cold medication otc [...] water often. If needed, use a hand showcase maker that contains at least 60% alcohol. Clean [...] 12/16/2022 Assessment & Plan (08/25/2021 7:25 PM PLASTIC SURGERY ASSISTANT): Flu vaccine updated Assessment & Plan (06/29/2020 1:41 PM CDT): Updated in office today Other fatigue 11/07/2019 08/25/2021 Assessment & Plan (11/07/2019 11:06 AM PLASTIC SURGERY ASSISTANT): Probably multifactorial. Check labs and followup to re-evaluate BMI 37.0-37.9, adult 10/19/2019 020 Assessment & Plan (10/19/2019 3:56 PM PLASTIC SURGERY ASSISTANT): Obesity is unchanged. Discussed the patient's BMI. [...] provided. Assessment & Plan (10/19/2019 3:56 PM PLASTIC SURGERY ASSISTANT): Obesity is unchanged. Discussed the patient's BMI. [...] screenings. Assessment & Plan (08/25/2021 7:25 PM PLASTIC SURGERY ASSISTANT): Encouraged healthy lifestyle, good nutrition and exercise. Encouraged Calcium and Vitamin D and weight bearing exercise for bone health. Reviewed immunizations Reviewed age appropirate screenings. Assessment & Plan (06/29/2020 1:37 PM CDT): Encouraged healthy lifestyle, good nutrition and exercise. Encouraged Calcium and Vitamin D and weight bearing exercise for bone health. Reviewed immunizations Reviewed age appropirate screenings. Assessment & Plan (11/07/2019 11:03 AM PLASTIC SURGERY ASSISTANT): Encouraged healthy lifestyle, good nutrition and exercise. Encouraged Calcium and Vitamin D and weight bearing exercise for bone health. Reviewed immunizations Reviewed age appropirate screenings. 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 Bring accuchecks to office [...] pancreatitis. Assessment & Plan (08/25/2021 7:26 PM PLASTIC SURGERY ASSISTANT): Stressed importance of continued A1c control to minimize the penitentiary effects of diabetes. Bring accuchecks to office [...] of continued A1c control to minimize the penitentiary effects of diabetes. Bring accuchecks to office when instructed to do so. Check A1c about every 3-6 months. Take medication as prescribed. Get annual eye exam. Encouraged LLOYD/Statin if able to tolerate. Encouraged weight control and encouraged diabetic diet and exercise. Continue Invokana and metformin. He will check with his insurance regarding preferred SGLT. 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 Bring accuchecks to office [...] Department Care Team Description 11/19/[address] [facility] Medical [facility] [address] [place] [address] [place] [phone] Provider, MD Kayla 11/18/2024 3:30 PM PLASTIC SURGERY ASSISTANT Office Visit [facility] [address] [place] [address] [place] [phone] Janine Cardoza PA Annual physical exam [...] on file Legal Sex Male 10:06 AM PLASTIC SURGERY ASSISTANT Gender Identity Male 10/12/2020 3:47 PM PLASTIC SURGERY ASSISTANT Sexual Orientation Straight 10/12/2020 3: 47 PM PLASTIC SURGERY ASSISTANT Obstetrics History Last Filed Vital Signs Vital Sign Reading Time Taken Comments Blood Pressure 106/64 11/18/2024 3:11 PM PLASTIC SURGERY ASSISTANT Pulse 73 11/18/2024 3:11 PM PLASTIC SURGERY ASSISTANT Temperature 36.9 C (98.4 F) 11/18/2024 3:11 PM PLASTIC SURGERY ASSISTANT Respiratory Rate 18 05/24/2022 3:06 PM CDT Oxygen Saturation 99% 11/18/2024 3:11 PM PLASTIC SURGERY ASSISTANT Inhaled Oxygen Concentration - - Weight 93.2 kg (205 lb 6.4 oz) 11/18/2024 3:11 P M PLASTIC SURGERY ASSISTANT Height 182.9 cm (6') 09/14/2024 3:43 PM PLASTIC SURGERY ASSISTANT Body Mass Index 27.86 09/14/2024 3:43 PM PLASTIC SURGERY ASSISTANT Plan of Treatment Health Maintenance Due [...] DIABETES EYE EXAM Routine 11/19/2024 2:45 PM PLASTIC SURGERY ASSISTANT COMPREHENSIVE METABOLIC PANEL Routine 11/12/2024 3:08 PM PLASTIC SURGERY ASSISTANT Type 2 diabetes mellitus without complication, without long-term current use of insulin (HCC) HEMOGLOBIN A1C Routine 11/12/2024 3:08 PM PLASTIC SURGERY ASSISTANT Type 2 diabetes mellitus without complication, without long-term current use of insulin (HCC) LIPID PANEL Routine 11/12/2024 3:08 PM PLASTIC SURGERY ASSISTANT Type 2 diabetes mellitus without complication, without long-term current use of insulin (HCC) ALBUMIN CREATININE RATIO, URINE Routine 11/12/2024 3:08 PM PLASTIC SURGERY ASSISTANT Type 2 diabetes mellitus without complication, without long-term current use of insulin (HCC) HEPATITIS PANEL, ACUTE Routine 4 3:17 PM PLASTIC SURGERY ASSISTANT Screening examination for STD (sexually transmitted disease) from Last 3 Months or Most Recently Relevant to Health Maintenance Results * DIABETES EYE EXAM (11/19/2024 2:45 PM PLASTIC SURGERY ASSISTANT) SCRIBED DIABETIC DILATED EYE EXAM Abnormal Comment:myopic astigmatism us Historical Provider HEALTH MAINTENANCE Edited Result - Final * Albumin Creatinine Ratio, Urine (11/12/2024 3:08 PM PLASTIC SURGERY ASSISTANT) Creatinine, ur 87 20 - 320 mg/dL [...] a diagnostic category. Urine 11/12/2024 3:08 PM PLASTIC SURGERY ASSISTANT 11/12/2024 3:09 PM PLASTIC SURGERY ASSISTANT Narrative [facility] - 11/13/2024 5:11 AM PLASTIC SURGERY ASSISTANT FASTING:YES FASTING: YES Janine BROOKE LAB URINE ORDERABLES Final Result Performing Organization Address City/[facility]/ZIP Co de Phone Number [facility] [address] [place] [address] * Hemoglobin A1c (11/12/2024 3:08 PM PLASTIC SURGERY ASSISTANT) Hgb A1C 4.6 <5.7 % of total Hgb [facility] Comment: For the purpose of screening for the presence of diabetes: <5.7% Consistent with the absence of diabetes 5.7-6.4% Consistent with increased risk for diabetes (prediabetes) > or =6.5% Consistent with diabetes This assay result is consistent with a decreased risk of diabetes. Currently, no consensus exists regarding use of hemoglobin A1c for diagnosis of diabetes in children. According to [place] Diabetes Association (ADA) guidelines, hemoglobin A1c <7.0% represents optimal control in non- diabetic patients. Different metrics may apply to specific patient populations. Standards of Medical Care in Diabetes(ADA). Blood 11/12/2024 3:08 PM PLASTIC SURGERY ASSISTANT 11/12/2024 3:09 PM PLASTIC SURGERY ASSISTANT Narrative [facility] - 11/13/2024 5:11 AM PLASTIC SURGERY ASSISTANT FASTING:YES FASTING: YES Janine BROOKE LAB BLOOD ORDERABLES Final Result Performing Organization Address City/[facility]/ZIP Co de Phone Number [facility] [address] [place] [phone] * (ABNORMAL) Lipid panel (11/12/2024 3:08 PM PLASTIC SURGERY ASSISTANT) Pathologist [facility] Cholesterol 174 <200 mg/dL [facility] HDL 44 > OR = 40 mg/dL [facility] Triglycerides 76 <150 mg/dL [facility] Carter LDL 113(H) mg/dL (calc) [facility] Comment: Reference range: <100 Desirable range <100 mg/dL for primary prevention; <70 mg/dL for patients with CHD or diabetic patients with > or = 2 CHD risk factors. LDL-C is now calculated using the Graeme calculation, which is a validated novel method providing better accuracy than the Friedewald equation in the estimation of LDL-C. Adrian SS et al. REJI. 2013;310(19): 8315-5075 (http://education.Qvolve/faq/HHE608) Chol/HDL ratio 4.0 <5.0 (calc) [facility] Non-HDL, (LDL+VLDL) 130(H) <130 mg/dL (calc) [facility] Comment: For patients with diabetes plus 1 major ASCVD risk factor, treating to a non-HDL-C goal of <100 mg/dL (LDL-C of <70 mg/dL) is considered a therapeutic option. Blood 11/12/2024 3:08 PM PLASTIC SURGERY ASSISTANT 11/12/2024 3:09 PM PLASTIC SURGERY ASSISTANT Narrative [facility] - 11/13/2024 5:11 AM PLASTIC SURGERY ASSISTANT FASTING:YES FASTING: YES Janine BROOKE LAB BLOOD ORDERABLES Final Result [facility] [address] [place] [phone] * Comprehensive metabolic panel (11/12/2024 3:08 PM PLASTIC SURGERY ASSISTANT) Pathologist [facility] Glucose 82 65 - 99 mg/dL [facility] Comment: Fasting reference interval BUN 12 7 - 25 mg/dL [facility] tiffany Carter Creatinine 0.93 0.60 - 1.29 mg/dL [facility] Raul eGFR 104 > OR = [...] ratio 2.0 1.0 - 2.5 (calc) [facility] Bilirubin, total 1.0 0.2 - 1.2 mg/dL [facility] Alk phos 55 36 - 130 U/L [facility] AST 16 10 - 40 U/L [facility] ALT (SGPT) 10 9 - 46 U/L [facility] Blood 11/12/2024 3:08 PM PLASTIC SURGERY ASSISTANT 11/12/2024 3:09 PM PLASTIC SURGERY ASSISTANT Narrative [facility] - 11/13/2024 5:11 AM PLASTIC SURGERY ASSISTANT FASTING:YES FASTING: YES Janine BROOKE LAB BLOOD ORDERABLES Final Result [facility] [address] [place] [address] * Hepatitis panel, acute Blood (08/27/2024 3:17 PM PLASTIC SURGERY ASSISTANT) Hep A IgM NON-REACTI VE NON-REACT LINDY [facility] Comment: For additional information, please refer to http://education.Reenergy Electric/faq/FNC011 (This link is being provided for informational/ educational purposes only.) HepBsAg NON-REACTI VE NON-REACT LINDY [facility] Comment: For additional information, please refer to http://Pixie Technology.Reenergy Electric/faq/IPE118 (This link is being provided for informational/ educational purposes only.) Hep B core IgM NON-REACTI VE NON-REACT LINDY [facility] Comment: For additional information, please refer to http://Pixie [employer].Reenergy Electric/faq/ONX248 (This link is being provided for informational/ educational purposes only.) Hep C Ab NON-REACTI VE NON-REACT LINDY [facility] Comment: HCV antibody was non-reactive. There is no laboratory evidence of HCV infection. In most cases, no further action is required. However, if recent HCV exposure is suspected, a test for HCV RNA (test code 78703) is suggested. For additional information please refer to http://MontaVista Software/faq/ZQB70i7 (This link is being provided for informational/ educational purposes only.) Blood 08/27/2024 3:17 PM PLASTIC SURGERY ASSISTANT 08/27/2024 3:17 PM PLASTIC SURGERY ASSISTANT Janine BROOKE LAB MICROBIOLOGY - GENERAL ORDERABLES Final Result Performing Organization Address City/State/[facility] Co de Phone Number [facility] [address] [place] [address] from Last 3 Months or Most Recently Relevant to Health Maintenance Insurance [facility] Care Teams [employer] District Supervisor Relationship Specialty Start Date End Date Janine Cardoza PA [address] [place] [address] PCP - General Internal Medicine 08/10/19
[2025-02-10] MEDS: HYOSCYAMINE SULFATE 0.125 MG TABLET PO (12:07)
[2025-02-10] MEDS: TAMSULOSIN HCL 0.4 MG CAPSULE PO (12:07)
[2025-02-10] MEDS: KETOROLAC 30 MG/ML VIAL (*BKC) IV PUSH (12:08)
[2025-02-10 12:12] VITALS: BP 117/82; PULSE 89; RESP 16; O2SAT 99
[2025-02-10 13:08] LABS: Add Urine Microscopic? YES; Appearance Urine Clear (Clear); Bacteria Urine None Seen /hpf; Bilirubin Urine Negative (Negative); Blood Urine 1+ (Negative); Color Urine Yellow (Yellow); Glucose Urine UA Negative (Negative); Ketones Urine Negative (Negative); Leukocyte Esterase Ur Negative LEU/UL (Negative); Nitrate Urine Negative (Negative); Non Pathogenic Casts 0-2; Protein Urine Negative (Negative); Specific Grav Ur 1.018 (1.001-1.035); Squamous Epithelial Cell Urine None Seen /hpf (Few); WBC Urine 0-5 /hpf (0-3); pH Urine 6.5 (5.0-9.0)
== END 2025-02-10 13:56 | disposition home or self-care (01) ==
PROVIDERS: Emergency Provider Student in an Organized Health Care Education/Training Program; PCP Physician Assistant
DX: N13.2 Hydronephrosis with renal and ureteral calculous obstruction (principal)
CPT/HCPCS: 36415; 74176; 80053; 81001; 85025; 96361; 96374; 96375; 99284; A9270; J1171; J1885; J2405; J7120